=== PATIENT | male | born 1925 | race African-American/Black ===

== ENCOUNTER 2016-04-09 16:00 | Inpatient (IN) | payer OTHER, MEDICARE ==
[2016-04-09] VITALS (10 sets, daily range): BP systolic 109–172; BP diastolic 55–96; PULSE 80–120; RESP 12–16; TEMP 98.2–99.8; O2SAT 97–100
[~2016-04-09 16:00] MED LIST: ALBUAER3 INH; ARIC10TA PO; ASPI81TA11 PO; FERR1TAB36 PO; IPRASOL INH; LEVA750T PO; LIPI40TA PO; LORA1CHW CHEW; PRED20 PO; SYMB160A INH; TAMS5CAP PO; TIOT1AER INH; ZOLO25TA PO
[2016-04-09] MEDS ORDERED: MIDAZOLAM HCL 2 MG/2 ML VIAL IV PUSH ONE (16:15)
[2016-04-09] MEDS ORDERED: SODIUM CHLORIDE 0.9% FLUSH 5 ML FLUSH IVF PRN (16:15)
[2016-04-09] MEDS ORDERED: methylPREDNISolone SOD SUCC 125 MG/2 ML VIAL IVP ONE (16:15)
[2016-04-09] MEDS: RESP: ALBUTEROL 2.5 MG/IPRATROPIUM 0.5 MG NEB (SCH) INH ×2 (16:21→16:22)
[2016-04-09] MEDS ORDERED: SODIUM CHLOR 0.9% 1000 ML INJ 1,000 ML IV ONE ×3 (16:30→17:15)
--- NOTE | 2016-04-09 16:30 | PD ---
HPI Chief Complaint: Respiratory Distress Time Seen by Provider: 16:05 Travel History International Travel<30 days: No Contact w/Intl Traveler<30days: No Traveled to known affect area: No History of Present Illness HPI Patient is an 89-year-old male with history of COPD, presents to emergency room with respiratory failure. As per EMS, they were called to patient's home as patient was having increased agonal breathing. As per EMS, patient's home health nurse went to evaluate patient and patient was short of breath and wheezing. Patient was given an albuterol treatment with minimal relief of symptoms. When EMS arrived on scene, patient was unresponsive in respiratory distress. Patient was intubated for protection of airway. PFSH Past Medical History Hx Anticoagulant Therapy: Yes (81 MG ASPIRIN DAILY) Asthma: Yes Cancer: Yes (PROSTATE ) Cardiovascular Problems: Yes High Cholesterol: Yes Cerebrovascular Accident: No Dementia: Yes Diminished Hearing: Yes Endocrine: No Genitourinary: Yes Hypertension: Yes Immune Disorder: No Musculoskeletal: No Neurologic: Yes (Dementia) Reproductive: No Respiratory: Yes (COPD) Migraines: No Seizures: No Past Surgical History Abdominal Surgery: No Cardiac Surgery: No Ear Surgery: No Endocrine Surgery: No Eye Surgery: No Genitourinary Surgery: Yes Gynecologic Surgery: No Oral Surgery: No Prostatectomy: Yes (2001) Thoracic Surgery: No Social History Alcohol Use: No Tobacco Use: No (former) Substance Use: No Allergies-Medications (Allergen,Severity, Reaction): Coded Allergies: No Known Allergies (Unverified , 04/09/16) Reported Meds & Prescriptions Reported Meds & Active Scripts Active Symbicort Inh (Budesonide/Formoterol Fumarate) 160-4.5 Mcg/Act Aero 2 Puff INH Q12HR Levaquin (Levofloxacin) 750 Mg Tab 750 Mg PO Q48H Prednisone 20 Mg Tab 40 Mg PO DAILY Take 2 pills daily for 3 Days, then 1 pill daily for 3 days, then half a pill for 3 Days. Reported Stiolto Respimat Inh (Tiotropium-Olodaterol Inh) 2.5-2.5 Mcg/Act Aero 2 Puff INH DAILY Duoneb (Ipratropium-Albuterol Neb) 0.5-2.5 Mg/3 Ml Neb 1 Nebule INH Q4HR NEB Zoloft (Sertraline HCl) 25 Mg Tab 25 Mg PO DAILY Claritin (Loratadine) 5 Mg Chew 5 Mg CHEW DAILY Flomax (Tamsulosin HCl) 0.4 Mg Cap 0.4 Mg PO HS Aricept (Donepezil) 10 Mg Tab 10 Mg PO HS Lipitor (Atorvastatin Calcium) 40 Mg Tab 40 Mg PO EVERY OTHER DAY Iron (Ferrous Sulfate) 325 Mg Tab 325 Mg PO DAILY Take Aspirin EC (Aspirin) 81 Mg Tabdr 81 Mg PO DAILY Proair Hfa 8.5 GM Inh (Albuterol Sulfate) 90 Mcg/Act Aer 1 Puff INH Q4H PRN 108 mcg/actuation Review of Systems ROS Limitations: Intubated Physical Exam Narrative GENERAL: Moderate respiratory distress, patient sedated and intubated SKIN: Warm and dry. HEAD: Atraumatic. Normocephalic. ENT: No nasal bleeding or discharge. Mucous membranes pink and moist. ET tube in good position NECK: Trachea midline. No JVD. CARDIOVASCULAR: Tachycardic. No murmur appreciated. RESPIRATORY: Diffuse wheezing throughout upper and lower lobes of lungs, breath sounds heard bilaterally GASTROINTESTINAL: Abdomen soft, non-tender, nondistended. MUSCULOSKELETAL: No obvious deformities. No clubbing. No cyanosis. No edema. Data Data Last Documented VS Vital Signs Date Time Temp Pulse Resp B/P Pulse Ox O2 Delivery O2 Flow Rate FiO2 04/09/16 17:06 50 04/09/16 16:30 103 12 144/83 100 Ventilator 04/09/16 16:07 98.2 Orders Complete Blood Count With Diff (04/09/16 16:03) Comprehensive Metabolic Panel (04/09/16 16:03) B-Type Natriuretic Peptide (04/09/16 16:03) Act Partial Throm Time (Ptt) (04/09/16 16:03) Prothrombin Time / Inr (Pt) (04/09/16 16:03) Magnesium (Mg) (04/09/16 16:03) Ckmb (Isoenzyme) Profile (04/09/16 16:03) Troponin I (04/09/16 16:03) Arterial Blood Gas (Abg) (04/09/16 16:03) Urinalysis - C+S If Indicated (04/09/16 16:03) Influenzae A/B Antigen (04/09/16 16:03) Blood Culture (04/09/16 16:03) Iv Access Insert/Monitor (04/09/16 16:03) Electrocardiogram (04/09/16 16:03) Ecg Monitoring (04/09/16 16:03) Oximetry (04/09/16 16:03) Oxygen Administration (04/09/16 16:03) Chest, Single Ap (04/09/16 16:03) Urinary Catheter Insert/Apply (04/09/16 16:03) Sodium Chloride 0.9% Flush (Ns Flush) (04/09/16 16:15) Methylprednisolone So Succ Inj (Solumedr (04/09/16 16:15) Albuterol-Ipratropium Neb (Duoneb Neb) (04/09/16 16:15) Lactic Acid Sepsis Protocol (04/09/16 16:03) Propofol 1000 Mg/100 Ml Inj (Diprivan 10 (04/09/16 16:15) Midazolam Inj (Versed Inj) (04/09/16 16:15) Sodium Chlor 0.9% 1000 Ml Inj (Ns 1000 M (04/09/16 16:30) Sodium Chlor 0.9% 1000 Ml Inj (Ns 1000 M (04/09/16 17:15) Sodium Chlor 0.9% 1000 Ml Inj (Ns 1000 M (04/09/16 17:15) Piperacil-Tazo 3.375 Gm Premix (Zosyn 3. (04/09/16 17:15) Azithromycin Inj (Zithromax Inj) (04/09/16 17:15) Resp Ventilation- Volume (04/09/16 ) Labs Laboratory Tests Test 04/09/16 04/09/16 16:25 16:47 White Blood Count 19.8 TH/MM3 Red Blood Count 4.13 MIL/MM3 Hemoglobin 11.9 GM/DL Hematocrit 36.3 % Mean Corpuscular Volume 87.9 FL Mean Corpuscular Hemoglobin 28.9 PG Mean Corpuscular Hemoglobin 32.9 % Concent Red Cell Distribution Width 16.9 % Platelet Count 254 TH/MM3 Mean Platelet Volume 9.1 FL Neutrophils (%) (Auto) 24.0 % Lymphocytes (%) (Auto) 52.8 % Monocytes (%) (Auto) 8.0 % Eosinophils (%) (Auto) 14.5 % Basophils (%) (Auto) 0.7 % Neutrophils # (Auto) 4.7 TH/MM3 Lymphocytes # (Auto) 10.4 TH/MM3 Monocytes # (Auto) 1.6 TH/MM3 Eosinophils # (Auto) 2.9 TH/MM3 Basophils # (Auto) 0.1 TH/MM3 CBC Comment AUTO DIFF Sodium Level 140 MEQ/L Potassium Level 4.8 MEQ/L Chloride Level 103 MEQ/L Carbon Dioxide Level 26.0 MEQ/L Anion Gap 11 MEQ/L Blood Urea Nitrogen 23 MG/DL Creatinine 1.59 MG/DL Estimat Glomerular Filtration 50 ML/MIN Rate Random Glucose 190 MG/DL Lactic Acid Level 4.5 mmol/L Calcium Level 9.0 MG/DL Magnesium Level 2.6 MG/DL Total Bilirubin 0.3 MG/DL Aspartate Amino Transf 20 U/L (AST/SGOT) Alanine Aminotransferase 23 U/L (ALT/SGPT) Alkaline Phosphatase 84 U/L Total Creatine Kinase 99 U/L Troponin I LESS THAN 0.02 NG/ML B-Type Natriuretic Peptide 28 PG/ML Total Protein 7.2 GM/DL Albumin 3.6 GM/DL Blood Gas Puncture Site RT RADIAL Blood Gas Patient Temperature 98.6 Blood Gas HCO3 23 mmol/L Blood Gas Base Excess -2.3 mmol/L Blood Gas Oxygen Saturation 96 % Arterial Blood pH 7.31 Arterial Blood Partial 48 mmHg Pressure CO2 Arterial Blood Partial 440 mmHG Pressure O2 Arterial Blood Oxygen Content 15.3 Vol % Arterial Blood 1.7 % Carboxyhemoglobin Arterial Blood Methemoglobin 2.5 % Blood Gas Hemoglobin 10.5 G/DL Oxygen Delivery Device VENTILATOR Blood Gas Ventilator Setting 550/12/+5 Blood Gas Inspired Oxygen 100 % [facility] Medical Decision Making Medical Screen Exam Complete: Yes Emergency Medical Condition: Yes Interpretation(s) EKG at 1606: A flutter at 121 bpm, qt/qtc: 300/372 Vital Signs Date Time Temp Pulse Resp B/P Pulse Ox O2 Delivery O2 Flow Rate FiO2 04/09/16 16:07 120 16 137/75 100 Differential Diagnosis Acute hypoxemic respiratory failure secondary to COPD exacerbation, ACS, arrhythmia Narrative Course Patient is an 89-year-old male with history of COPD, presents to emergency room after he is intubated by EMS in the field for decompensation and acute COPD exacerbation. Arrival to the emergency room, patient was placed on cardiac/vascular sonographer. ETT in good position, patient with b/l bs. X-ray of the chest ordered for evaluation of ET tube placement as well as for evaluation of possible pneumonia. Patient is wheezing on exam, will give IV steroids as well as neb treatments. Labs as well as a blood cultures ordered for patient. Patient will require to ICU WBC 19.8 Hemoglobin 11.9 Hematocrit 36.3 Platelets 254 Sodium 140 Chloride 103 Potassium 4.8 BUN 23 Creatinine 1.59 Lactic acid 4.5 Patient septic, 30 cc/kg IV fluids ordered for patient, patient has been pancultured, IV Zosyn and azithromycin was ordered for patient. Case is reviewed with Dr. Eli who accepts patient to service. Patient's family at bedside, I did review all labs and all studies as well as the plan of care with them. Critical Care Narrative Aggregate critical care time was 30 minutes. Time to perform other separately billable procedures was not included in the critical care time. My time did not include minutes spent treating any other patients simultaneously or on activities that did not directly contribute to the patient's treatment. The services I provided to this patient were to treat and/or prevent clinically significant deterioration that could result in: , decompensation, deterioration I provided critical care services requiring my management, as noted below: Chart data review, documentation time, medication orders and management, vital sign assessments/reviewing monitor data, ordering and reviewing lab tests, ordering and interpreting/reviewing x-rays and diagnostic studies, care of the patient and discussion of the patient with the admitting physicians. Diagnosis Primary Impression: Acute hypoxemic respiratory failure Additional Impressions: COPD exacerbation Sepsis Renal insufficiency Admitting Information Admitting Physician Requests: Admit Shannan Schroeder DO Apr 09, 2016 16:30
[2016-04-09 16:42] LABS: AUTOMATED NEUTROPHIL # 4.7 TH/MM3 (1.8-7.7); BASOPHIL # 0.1 TH/MM3 (0-0.2); BASOPHIL % 0.7 % (0.0-2.0); EOSINOPHIL # 2.9 TH/MM3 (0-0.4); EOSINOPHIL % 14.5 % (0.0-4.0); HEMATOCRIT 36.3 % (39.0-51.0); LYMPH % 52.8 % (9.0-44.0); LYMPHOCYTE # 10.4 TH/MM3 (1.0-4.8); MEAN CELL VOLUME 87.9 FL (80.0-100.0); MEAN CORPUSCULAR HEMOGLOBIN 28.9 PG (27.0-34.0); MEAN CORPUSCULAR HGB CONC 32.9 % (32.0-36.0); PLATELET COUNT 254 TH/MM3 (150-450); RED BLOOD COUNT 4.13 MIL/MM3 (4.50-5.90); RED CELL DISTRIBUTION WIDTH 16.9 % (11.6-17.2); WHITE BLOOD COUNT 19.8 TH/MM3 (4.0-11.0)
[2016-04-09] MEDS: PROPOFOL 1000 MG/100 ML INJ 100 ML IV SCH ×3 (16:51→23:12)
[2016-04-09 16:58] LABS: HEMO FLAGS AUTO DIFF
[2016-04-09 16:59] LABS: BLOOD GAS BASE EXCESS -2.3 mmol/L (-2-2); BLOOD GAS CARBOXYHEMOGLOBIN 1.7 % (0-4); BLOOD GAS HCO3 23 mmol/L (22-26); BLOOD GAS METHEMOGLOBIN 2.5 % (0-2); BLOOD GAS O2 HGB SATURATION 96 % (90-100); BLOOD GAS OXYGEN CONTENT 15.3 Vol % (12.0-20.0); BLOOD GAS PCO2 48 mmHg (38-42); BLOOD GAS PO2 440 mmHG (61-120); BLOOD GAS TOTAL HGB 10.5 G/DL (12.0-16.0); TEMP CORR TO 98.6
[2016-04-09 17:00] LABS: CRITICAL VALUE NO; DRAW SITE RT RADIAL; FIO2 100 %; NUMBER OF ARTERIAL PUNCTURES 1; OXYGEN DEVICE VENTILATOR; STAT YES; ULNAR PULSE PRESENT; VENT SETTINGS 550/12/+5
[2016-04-09 17:07] LABS: ALKALINE PHOSPHATASE 84 U/L (45-117); TOTAL BILIRUBIN ADULT 0.3 MG/DL (0.2-1.0)
--- NOTE | 2016-04-09 17:07 | RADRPT ---
EXAM DATE/TIME: 04/09/2016 16:29 [facility] COMPARISON: CHEST SINGLE AP, February 17, 2016, 11:38. INDICATIONS : Shortness of breath. MEDICAL HISTORY : Hypertension. Chronic obstructive pulmonary disease. SURGICAL HISTORY : None. ENCOUNTER: Initial ACUITY: 1 day PAIN SCORE: Non-responsive. LOCATION: Bilateral chest FINDINGS: The cardiac silhouette is normal in transverse diameter. The lungs are free of acute parenchymal opac ity. No effusions are identified. There is prominence of the aortic knob is with calcification charac teristic of atherosclerotic vascular disease. Endotracheal tube is in good position above the edvin. A nasogastric tube is in place with its tip in the stomach. CONCLUSION: 1. No acute cardiopulmonary disease. 2. Satisfactory position of endotracheal tube as above. Dinesh House MD on April 09, 2016 at 17:05 Board Certified Radiologist. This report was verified electronically.
[2016-04-09 17:09] LABS: ALT (GPT) 23 U/L (12-78); ANION GAP 11 MEQ/L (5-15); AST (GOT) 20 U/L (15-37); BLOOD UREA NITROGEN 23 MG/DL (7-18); CHLORIDE 103 MEQ/L (98-107); GLOMERULAR FILTRATION RATE 50 ML/MIN (>89); MAGNESIUM 2.6 MG/DL (1.5-2.5); POTASSIUM 4.8 MEQ/L (3.5-5.1); SODIUM (NA) 140 MEQ/L (136-145)
[2016-04-09 17:10] LABS: CREATINE KINASE 99 U/L (39-308)
[2016-04-09] MEDS ORDERED: AZITHROMYCIN INJ 500 MG in SODIUM CHLOR 0.9% 250 ML INJ 250 ML IV ONE (17:15)
[2016-04-09] MEDS ORDERED: PIPERACIL-TAZO 3.375 GM PREMIX 50 ML IV ONE (17:15)
[2016-04-09] MEDS ORDERED: CHLORHEXIDINE GLUCONATE 2 % 1 PACK (2 CLOTHS) TOP PRN (17:45)
[2016-04-09] MEDS ORDERED: MISCELLANEOUS NURSING INFORMATION XX SCH (17:45)
[2016-04-09] MEDS ORDERED: ACETAMINOPHEN 325 MG TAB PO PRN (17:45)
[2016-04-09] MEDS ORDERED: ONDANSETRON HCL 4 MG/2 ML VIAL IV PRN (17:45)
[2016-04-09] MEDS ORDERED: MORPHINE SULFATE 4 MG/ML INJ IV PRN (17:45)
[2016-04-09] MEDS ORDERED: METOCLOPRAMIDE HCL 10 MG/2 ML VIAL IV PRN (17:45)
[2016-04-09] MEDS ORDERED: Vancomycin Consult Pharmacy 1 EA XX SCH (17:45)
[2016-04-09] MEDS ORDERED: LORazepam 2 MG/ML VIAL IV PRN (17:45)
[2016-04-09] MEDS ORDERED: SODIUM CHLORIDE 0.9% FLUSH 5 ML FLUSH IV FLUSH PRN (17:45)
[2016-04-09 17:50] LABS: BASOPHILS 2 % (0-2); EOSINOPHILS 15 % (0-4); NEUTROPHIL # MANUAL DIFF 2.6 TH/MM3 (1.8-7.7); POLYS (SEG NEUTROPHILS) 13 % (16-70); WBC DIFF SAMPLE 100
[2016-04-09 17:51] LABS: PLATELET ESTIMATE SMEAR NORMAL (NORMAL); PLATELET MORPHOLOGY NORMAL (NORMAL); SCAN/DIFF FINAL DIFF MANUAL
--- NOTE | 2016-04-09 17:56 | HHI.HP ---
HPI Service Critical Care Medicine Primary Care Physician Khoi Kennedy MD Admission Diagnosis VDRF, SEPSIS Diagnosis: Travel History International Travel<30 Days: No Contact w/Intl Traveler <30 Da: No Traveled to Known Affected Are: No History of Present Illness 89-year-old male with history of COPD, presents to emergency room with respiratory failure. As per documentation, EMS were called to patient's home as patient was having increased agonal breathing. As per EMS, patient's home health nurse went to evaluate patient and patient was short of breath and wheezing. Patient was given an albuterol treatment with minimal relief of symptoms. When EMS arrived on scene, patient was unresponsive in respiratory distress. Patient was intubated for protection of airway. Review of Systems ROS Unable to obtain patient is sedated and intubated Past Family Social History Allergies: Coded Allergies: No Known Allergies (Unverified , 04/09/16) Past Medical History 1. Hypertension. 2. Hyperlipidemia. 3. COPD 4. Prostate cancer Past Surgical History 1. Prostatectomy Reported Medications Reported Meds & Active Scripts Active Symbicort Inh (Budesonide/Formoterol Fumarate) 160-4.5 Mcg/Act Aero 2 Puff INH Q12HR Levaquin (Levofloxacin) 750 Mg Tab 750 Mg PO Q48H Prednisone 20 Mg Tab 40 Mg PO DAILY Take 2 pills daily for 3 Days, then 1 pill daily for 3 days, then half a pill for 3 Days. Reported Stiolto Respimat Inh (Tiotropium-Olodaterol Inh) 2.5-2.5 Mcg/Act Aero 2 Puff INH DAILY Duoneb (Ipratropium-Albuterol Neb) 0.5-2.5 Mg/3 Ml Neb 1 Nebule INH Q4HR NEB Zoloft (Sertraline HCl) 25 Mg Tab 25 Mg PO DAILY Claritin (Loratadine) 5 Mg Chew 5 Mg CHEW DAILY Flomax (Tamsulosin HCl) 0.4 Mg Cap 0.4 Mg PO HS Aricept (Donepezil) 10 Mg Tab 10 Mg PO HS Lipitor (Atorvastatin Calcium) 40 Mg Tab 40 Mg PO EVERY OTHER DAY Iron (Ferrous Sulfate) 325 Mg Tab 325 Mg PO DAILY Take Aspirin EC (Aspirin) 81 Mg Tabdr 81 Mg PO DAILY Proair Hfa 8.5 GM Inh (Albuterol Sulfate) 90 Mcg/Act Aer 1 Puff INH Q4H PRN 108 mcg/actuation Active Ordered Medications Current Medications Medications (Trade) Dose Ordered Sig/Heena Route PRN Reason Start Time Stop Time Status Last Admin Dose Admin IV Flush 2 ml 2 ml UNSCH PRN IVF FLUSH AFTER USING IV ACCESS 04/09/16 16:15 Propofol 100 ml @ 0 mls/hr TITRATE IV 04/09/16 16:15 04/09/16 16:51 Sodium Chloride (NS 1000 ml Inj) 1,000 ml @ 85 mls/hr [id number] IV 04/09/16 17:37 UNV IV Flush (NS Flush) 2 ml UNSCH PRN IV FLUSH FLUSH AFTER USING IV ACCESS 04/09/16 17:45 UNV IV Flush (NS Flush) 2 ml BID IV FLUSH 04/09/16 21:00 UNV Acetaminophen (Tylenol) 650 mg Q6H PRN PO PAIN 1-10 AND/OR FEVER >101F 04/09/16 17:45 UNV Morphine Sulfate (Morphine Inj) 2 mg Q2H PRN IV PAIN SCALE 6 TO 10 04/09/16 17:45 UNV Famotidine (Pepcid Inj) 20 mg Q12HR IV PUSH 04/09/16 21:00 UNV Lorazepam (Ativan Inj) 1 mg Q1H PRN IV Agitation/Sedation 04/09/16 17:45 UNV Artificial Tears (Tears Naturale Opth Soln) 1 drop TID EACH EYE 04/09/16 18:00 UNV Ondansetron HCl (Zofran Inj) 4 mg Q6H PRN IV NAUSEA OR VOMITING 04/09/16 17:45 UNV Metoclopramide HCl (Reglan Inj) 10 mg Q6H PRN IV NAUSEA OR VOMITING 04/09/16 17:45 UNV Docusate Sodium (Colace Liq) 100 mg Q12H G-TUBE 04/09/16 17:45 UNV Heparin Sodium (Porcine) (Heparin Inj) 5,000 units Q8H SQ 04/09/16 17:45 UNV Miscellaneous Information 1 [id number] XX 04/09/16 17:45 UNV Chlorhexidine Gluconate (Chlorhexidine 2% Cloth) 3 pack Taper DAILY@04 TOP 04/10/16 04:00 04/06/17 03:59 UNV Chlorhexidine Gluconate 3 pack 3 pack UNSCH PRN TOP HYGIENIC CARE 04/09/16 17:45 UNV Piperacillin Sod/ Tazobactam Sod 100 ml @ 200 mls/hr Q6H IV 04/09/16 17:45 UNV Azithromycin 500 mg/Sodium Chloride 250 ml @ 250 mls/hr Q24H IV 04/09/16 17:45 UNV Pharmacy Profile Note (Vancomycin Consult Pharmacy) 0 ml @ 0 mls/hr UNSCH XX 04/09/16 17:45 UNV Family History Noncontributory Social History Quit smoking 30 years ago no alcohol or illicit drug abuse Physical Exam Vital Signs Vital Signs Date Time Temp Pulse Resp B/P Pulse Ox O2 Delivery O2 Flow Rate FiO2 04/09/16 17:30 105 16 172/96 100 Ventilator 50 04/09/16 17:06 50 04/09/16 16:30 103 12 144/83 100 Ventilator 100 04/09/16 16:10 100 04/09/16 16:07 98.2 120 16 137/75 100 04/09/16 16:05 99 100 04/09/16 16:00 100 Ventilator 100 04/09/16 16:00 100 100 Physical Exam GENERAL: Well-nourished, well-developed patient. SKIN: Warm and dry. HEAD: Normocephalic. EYES: No scleral icterus. No injection or drainage. NECK: Supple, trachea midline. No JVD or lymphadenopathy. CARDIOVASCULAR: Regular rate and rhythm without murmurs, gallops, or rubs. RESPIRATORY: Breath sounds equal bilaterally. No accessory muscle use. Wheezing bilaterally GASTROINTESTINAL: Abdomen soft, non-tender, nondistended. MUSCULOSKELETAL: No cyanosis, or edema. BACK: Nontender without obvious deformity. No CVA tenderness. Laboratory Laboratory Tests Test 04/09/16 04/09/16 16:25 16:47 White Blood Count 19.8 Red Blood Count 4.13 Hemoglobin 11.9 Hematocrit 36.3 Mean Corpuscular Volume 87.9 Mean Corpuscular Hemoglobin 28.9 Mean Corpuscular Hemoglobin 32.9 Concent Red Cell Distribution Width 16.9 Platelet Count 254 Mean Platelet Volume 9.1 Neutrophils (%) (Auto) 24.0 Lymphocytes (%) (Auto) 52.8 Monocytes (%) (Auto) 8.0 Eosinophils (%) (Auto) 14.5 Basophils (%) (Auto) 0.7 Neutrophils # (Auto) 4.7 Lymphocytes # (Auto) 10.4 Monocytes # (Auto) 1.6 Eosinophils # (Auto) 2.9 Basophils # (Auto) 0.1 CBC Comment AUTO DIFF Differential Total Cells 100 Counted Neutrophils % (Manual) 13 Lymphocytes % 61 Monocytes % 9 Eosinophils % 15 Basophils % 2 Neutrophils # (Manual) 2.6 Differential Comment FINAL DIFF MANUAL Platelet Estimate NORMAL Platelet Morphology Comment NORMAL Red Cell Morphology Comment NORMAL Sodium Level 140 Potassium Level 4.8 Chloride Level 103 Carbon Dioxide Level 26.0 Anion Gap 11 Blood Urea Nitrogen 23 Creatinine 1.59 Estimat Glomerular Filtration 50 Rate Random Glucose 190 Lactic Acid Level 4.5 Calcium Level 9.0 Magnesium Level 2.6 Total Bilirubin 0.3 Aspartate Amino Transf 20 (AST/SGOT) Alanine Aminotransferase 23 (ALT/SGPT) Alkaline Phosphatase 84 Total Creatine Kinase 99 Troponin I LESS THAN 0.02 B-Type Natriuretic Peptide 28 Total Protein 7.2 Albumin 3.6 Blood Gas Puncture Site RT RADIAL Blood Gas Patient Temperature 98.6 Blood Gas HCO3 23 Blood Gas Base Excess -2.3 Blood Gas Oxygen Saturation 96 Arterial Blood pH 7.31 Arterial Blood Partial 48 Pressure CO2 Arterial Blood Partial 440 Pressure O2 Arterial Blood Oxygen Content 15.3 Arterial Blood 1.7 Carboxyhemoglobin Arterial Blood Methemoglobin 2.5 Blood Gas Hemoglobin 10.5 Oxygen Delivery Device VENTILATOR Blood Gas Ventilator Setting 550/12/+5 Blood Gas Inspired Oxygen 100 Date/Time Procedure Status Source Growth 04/09/16 16:30 Influenza Types A,B Antigen (CALOS) - Final Complete Nasal Aspirate NEGATIVE FOR FLU A AND B ANTIGEN.... 04/09/16 16:20 Aerobic Blood Culture Received Blood Peripheral Pending 04/09/16 16:20 Anaerobic Blood Culture Received Blood Peripheral Pending Result Diagram: 04/09/16 1625 04/09/16 1625 Assessment and Plan Problem List: (1) COPD exacerbation ICD Code: J44.1 Status: Acute (2) Leukocytosis ICD Code: D72.829 Status: Acute (3) Encephalopathy ICD Code: G93.40 Status: Acute (4) Acute hypoxemic respiratory failure ICD Code: J96.01 Status: Acute (5) Renal insufficiency ICD Code: N28.9 Status: Acute Assessment and Plan Acute on chronic respiratory failure - Due to COPD exacerbation - Broad-spectrum antibiotic - Follow-up culture - IV steroids - Albuterol/ipratropium scheduled and when necessary Acute kidney injury - Dehydration - Aggressive IV fluid resuscitation Lactic acidosis - Monitor trend - IV hydration Hypertension - Hold home meds - Normotensive DVT GI prophylaxis - Lovenox and Pepcid Critical Care: The total critical care time was 35minutes. Time to perform other separately billable procedures was not included in the critical care time. Greg Eli MD Apr 09, 2016 17:56
[2016-04-09] MEDS: ARTIFICIAL TEARS OPTH SOLN 15 ML BTL EACH EYE SCH (18:00)
[2016-04-09 18:19] LABS: BLOOD GAS BASE EXCESS -2.6 mmol/L (-2-2); BLOOD GAS CARBOXYHEMOGLOBIN 1.7 % (0-4); BLOOD GAS HCO3 23 mmol/L (22-26); BLOOD GAS METHEMOGLOBIN 2.7 % (0-2); BLOOD GAS O2 HGB SATURATION 95 % (90-100); BLOOD GAS OXYGEN CONTENT 16.1 Vol % (12.0-20.0); BLOOD GAS PCO2 46 mmHg (38-42); BLOOD GAS PO2 208 mmHG (61-120); BLOOD GAS TOTAL HGB 11.8 G/DL (12.0-16.0); TEMP CORR TO 98.6
[2016-04-09 18:20] LABS: CRITICAL VALUE NO; DRAW SITE RT RADIAL; FIO2 50 %; NUMBER OF ARTERIAL PUNCTURES 1; OXYGEN DEVICE VENTILATOR; STAT YES; ULNAR PULSE PRESENT; VENT SETTINGS 550/16/+5
[2016-04-09 18:36] LABS: LACTIC ACID GHOST NOT REPORTABLE
[2016-04-09 18:44] LABS: APTT (PATIENT) 23.6 SEC (24.3-30.1); PROTHROMBIN TIME - PATIENT 10.9 SEC (9.8-11.6)
[2016-04-09] MEDS ORDERED: VANCOMYCIN INJ 2,200 MG in SODIUM CHLORID 0.9% 500 ML INJ 500 ML IV STA (19:19)
[2016-04-09] MEDS: SODIUM CHLOR 0.9% 1000 ML INJ 1,000 ML IV SCH (20:07)
[2016-04-09] MEDS: methylPREDNISolone SOD SUCC 40 MG/1 ML VIAL IV PUSH SCH (23:10)
[2016-04-09] MEDS: PIPERACIL-TAZO 4.5 GM PREMIX 100 ML IV SCH (23:10)
[2016-04-09] MEDS: HEPARIN SODIUM - SQ 10,000 UNITS/ML VIAL SQ SCH (23:10)
[2016-04-09] MEDS: FAMOTIDINE 20 MG/2 ML VIAL IV PUSH SCH (23:11)
[2016-04-09] MEDS: DOCUSATE SODIUM 100 MG/10 ML UDC G-TUBE SCH (23:11)
[2016-04-09] MEDS: CHLORHEXIDINE GLUCONATE 2 % 1 PACK (2 CLOTHS) TOP SCH (23:11)
[2016-04-09] MEDS: SODIUM CHLORIDE 0.9% FLUSH 5 ML FLUSH IV FLUSH SCH (23:11)
[2016-04-10] VITALS (19 sets, daily range): BP systolic 112–171; BP diastolic 56–78; PULSE 51–83; RESP 16–20; TEMP 97–98.8; O2SAT 97–100
[2016-04-10] MEDS: PROPOFOL 1000 MG/100 ML INJ 100 ML IV SCH ×5 (03:13→20:57)
[2016-04-10 04:30] LABS: AUTOMATED NEUTROPHIL # 12.8 TH/MM3 (1.8-7.7); BASOPHIL % 0.1 % (0.0-2.0); EOSINOPHIL % 0.1 % (0.0-4.0); HEMATOCRIT 35.5 % (39.0-51.0); HEMO FLAGS DIFF FINAL; LYMPH % 12.1 % (9.0-44.0); LYMPHOCYTE # 1.8 TH/MM3 (1.0-4.8); MEAN CELL VOLUME 88.4 FL (80.0-100.0); MEAN CORPUSCULAR HEMOGLOBIN 28.8 PG (27.0-34.0); MEAN CORPUSCULAR HGB CONC 32.6 % (32.0-36.0); MONO % 1.9 % (0.0-8.0); NEUT % 85.8 % (16.0-70.0); PLATELET COUNT 196 TH/MM3 (150-450); RED BLOOD COUNT 4.02 MIL/MM3 (4.50-5.90); RED CELL DISTRIBUTION WIDTH 17.1 % (11.6-17.2); WHITE BLOOD COUNT 14.9 TH/MM3 (4.0-11.0)
[2016-04-10 04:46] LABS: ALT (GPT) 20 U/L (12-78); ANION GAP 10 MEQ/L (5-15); AST (GOT) 18 U/L (15-37); BICARBONATE 20.9 MEQ/L (21.0-32.0); BLOOD UREA NITROGEN 20 MG/DL (7-18); CHLORIDE 109 MEQ/L (98-107); GLOMERULAR FILTRATION RATE 66 ML/MIN (>89); POTASSIUM 4.7 MEQ/L (3.5-5.1); SODIUM (NA) 140 MEQ/L (136-145)
[2016-04-10 04:51] LABS: ALKALINE PHOSPHATASE 74 U/L (45-117); TOTAL BILIRUBIN ADULT 0.4 MG/DL (0.2-1.0)
[2016-04-10] MEDS: SODIUM CHLOR 0.9% 1000 ML INJ 1,000 ML IV SCH ×2 (05:59→10:04)
[2016-04-10] MEDS: methylPREDNISolone SOD SUCC 40 MG/1 ML VIAL IV PUSH SCH ×4 (05:59→23:58)
[2016-04-10] MEDS: PIPERACIL-TAZO 4.5 GM PREMIX 100 ML IV SCH ×4 (06:00→23:58)
[2016-04-10] MEDS: HEPARIN SODIUM - SQ 10,000 UNITS/ML VIAL SQ SCH ×3 (06:00→20:56)
[2016-04-10 06:42] LABS: BACTERIA, URINE MOD /hpf; BLOOD, URINE NEG (NEG); GLUCOSE,URINE NEG (NEG); KETONE, URINE NEG (NEG); MUCUS URINE FEW /lpf (OCC); NITRITE,URINE NEG (NEG); PH, URINE 5.5 (5.0-8.5); SQUAMOUS EPITHELIAL CELL URINE <1 /hpf (0-5); URINE COLOR YELLOW (YELLW/STRAW)
[2016-04-10 06:46] LABS: CULTURE IF INDICATED CULTURE INDICATED
[2016-04-10] MEDS: RESP: ALBUTEROL 2.5 MG/IPRATROPIUM 0.5 MG NEB (PRN) INH ×2 (08:06→14:50)
[2016-04-10] MEDS: ARTIFICIAL TEARS OPTH SOLN 15 ML BTL EACH EYE SCH ×3 (09:00→18:12)
[2016-04-10] MEDS: DOCUSATE SODIUM 100 MG/10 ML UDC G-TUBE SCH ×2 (10:04→20:56)
[2016-04-10] MEDS: SODIUM CHLORIDE 0.9% FLUSH 5 ML FLUSH IV FLUSH SCH ×2 (10:05→20:56)
--- NOTE | 2016-04-10 10:46 | HHI.CCPN ---
Subjective Remarks/Hospital Course 89-year-old male with history of COPD, presents to emergency room with respiratory failure. As per documentation, EMS were called to patient's home as patient was having increased agonal breathing. As per EMS, patient's home health nurse went to evaluate patient and patient was short of breath and wheezing. Patient was given an albuterol treatment with minimal relief of symptoms. When EMS arrived on scene, patient was unresponsive in respiratory distress. Patient was intubated for protection of airway. Objective Vital Signs Date Time Temp Pulse Resp B/P Pulse Ox O2 Delivery O2 Flow Rate FiO2 04/10/16 10:00 40 04/10/16 09:14 100 04/10/16 06:00 55 04/10/16 04:00 98.4 19 171/78 04/09/16 20:27 Ventilator Result Diagram: 04/10/16 0358 04/10/16 0358 Other Results Microbiology Date/Time Procedure Status Source Growth 04/09/16 16:30 Influenza Types A,B Antigen (CALOS) - Final Complete Nasal Aspirate NEGATIVE FOR FLU A AND B ANTIGEN.... Laboratory Tests Test 04/09/16 04/09/16 16:47 18:08 Blood Gas Puncture Site RT RADIAL RT RADIAL Blood Gas Patient Temperature 98.6 98.6 Blood Gas HCO3 23 mmol/L 23 mmol/L (22-26) (22-26) Blood Gas Base Excess -2.3 mmol/L -2.6 mmol/L (-2-2) (-2-2) Blood Gas Oxygen Saturation 96 % (90-100) 95 % (90-100) Arterial Blood pH 7.31 7.31 (7.380-7.420) (7.380-7.420) Arterial Blood Partial 48 mmHg (38-42) 46 mmHg (38-42) Pressure CO2 Arterial Blood Partial 440 mmHG 208 mmHG Pressure O2 (61-120) (61-120) Arterial Blood Oxygen Content 15.3 Vol % 16.1 Vol % (12.0-20.0) (12.0-20.0) Arterial Blood 1.7 % (0-4) 1.7 % (0-4) Carboxyhemoglobin Arterial Blood Methemoglobin 2.5 % (0-2) 2.7 % (0-2) Blood Gas Hemoglobin 10.5 G/DL 11.8 G/DL (12.0-16.0) (12.0-16.0) Oxygen Delivery Device VENTILATOR VENTILATOR Blood Gas Ventilator Setting 550/12/+5 550/16/+5 Blood Gas Inspired Oxygen 100 % 50 % Objective Remarks GENERAL: Well-nourished, well-developed patient. SKIN: Warm and dry. HEAD: Normocephalic. EYES: No scleral icterus. No injection or drainage. NECK: Supple, trachea midline. No JVD or lymphadenopathy. CARDIOVASCULAR: Regular rate and rhythm without murmurs, gallops, or rubs. RESPIRATORY: Breath sounds equal bilaterally. No accessory muscle use. Wheezing bilaterally GASTROINTESTINAL: Abdomen soft, non-tender, nondistended. MUSCULOSKELETAL: No cyanosis, or edema. BACK: Nontender without obvious deformity. No CVA tenderness. A/P Problem List: (1) COPD exacerbation ICD Code: J44.1 Status: Acute (2) Leukocytosis ICD Code: D72.829 Status: Acute (3) Encephalopathy ICD Code: G93.40 Status: Acute (4) Acute hypoxemic respiratory failure ICD Code: J96.01 Status: Acute (5) Renal insufficiency ICD Code: N28.9 Status: Acute Assessment and Plan Acute on chronic respiratory failure - Due to COPD exacerbation - Broad-spectrum antibiotic - Follow-up culture - IV steroids - Albuterol/ipratropium scheduled and when necessary - SBT and attempt to wean today Acute kidney injury - Dehydration - Aggressive IV fluid resuscitation - Monitor I's and O's Lactic acidosis - Monitor trend - IV hydration - Improving Hypertension - Hold home meds - Normotensive DVT GI prophylaxis - Lovenox and Pepcid Critical Care: The total critical care time was 35minutes. Time to perform other separately billable procedures was not included in the critical care time. Greg Eli MD Apr 10, 2016 10:45
--- NOTE | 2016-04-10 16:12 | EC ---
Study Study Date:04/10/2016 STUDY CONCLUSIONS SUMMARY - Left ventricle: The cavity size was normal. Wall thickness was normal. Systolic function was vigorous. The estimated ejection fraction was in the range of 65% to 70%. Wall motion was normal; there were no regional wall motion abnormalities. Doppler parameters are consistent with abnormal left ventricular relaxation (grade 1 diastolic dysfunction). - Mitral valve: Mild regurgitation. - Tricuspid valve: Mild regurgitation. If LV function is below 40, please consider prescribing an ACEI or ARB or document rationale for non-use. PROCEDURE DATA STUDY STATUS: Elective. Procedure: Transthoracic echocardiography. Image quality was good. Scanning was performed from the parasternal, apical, and subcostal acoustic windows. Study completion: The patient tolerated the procedure well. Transthoracic echocardiography. M-mode, complete 2D, complete spectral Doppler, and color Doppler. Patient status: Inpatient. CARDIAC ANATOMY LEFT VENTRICLE: The cavity size was normal. Wall thickness was normal. Systolic function was vigorous. The estimated ejection fraction was in the range of 65% to 70%. Wall motion was normal; there were no regional wall motion abnormalities. Doppler parameters are consistent with abnormal left ventricular relaxation (grade 1 diastolic dysfunction). AORTIC VALVE: Trileaflet; normal thickness, mildly calcified leaflets. Doppler: Transvalvular velocity was within the normal range. There was no stenosis. No regurgitation. AORTA: Aortic root: The aortic root was normal in size. MITRAL VALVE: Structurally normal valve. Doppler: Transvalvular velocity was within the normal range. There was no evidence for stenosis. Mild regurgitation. LEFT ATRIUM: The atrium was normal in size. RIGHT VENTRICLE: The cavity size was normal. Wall thickness was normal. PULMONIC VALVE: Doppler: Transvalvular velocity was within the normal range. There was no evidence for stenosis. No regurgitation. TRICUSPID VALVE: Structurally normal valve. Doppler: Transvalvular velocity was within the normal range. Mild regurgitation. PULMONARY ARTERY: The main pulmonary artery was normal-sized. Systolic pressure was within the normal range. RIGHT ATRIUM: The atrium was normal in size. PERICARDIUM: There was no pericardial effusion. SYSTEMIC VEINS: Inferior vena cava: The vessel was normal in size. BASIC MEASUREMENTS ADULT Normal Left ventricle LV internal dimension, ED, chordal level, *36.8 mm 43-52 PLAX LV internal dimension, ES, chordal level, 25.3 mm 23-38 PLAX Fractional shortening, chordal level, PLAX 31 % >29 LV posterior wall thickness, ED 8.56 mm IVS/LVPW ratio, ED 1.15 <1.3 Ventricular septum Septal thickness, ED 9.83 mm Aortic valve Leaflet separation 18 mm 15-26 Right ventricle RV internal dimension, ED, PLAX 20.7 mm 19-38 BASIC MEASUREMENTS ADULT Normal Aortic valve Leaflet separation 18 mm 15-26 Aorta Root diameter, ED 33 mm 20-37 Left atrium Anterior-posterior dimension, ES 28 mm 19-40 LA/aortic root ratio 0.85 DOPPLER MEASUREMENTS ADULT Normal Main pulmonary artery Pressure, S 29 mm Hg =30 Mitral valve Peak E-wave velocity 44.4 cm/s Peak A-wave velocity 80.5 cm/s Peak E/A ratio 0.6 Tricuspid valve Regurgitant peak velocity 220 cm/s Peak RV-RA gradient, S 19 mm Hg Maximal regurgitant velocity 220 cm/s Systemic veins Estimated CVP 10 mm Hg Right ventricle RV pressure, S 29 mm Hg <30 LEGEND: Mean values are shown as u=mean value. Asterisk (*) lagos values outside specified normal range. Prepared and signed by Sina Nguyễn [id number]
--- NOTE | 2016-04-10 16:36 | EKG ---
Date Performed: 04/09/2016 Time Performed: 16:06:55 PTAGE: 89 years EKG: LIKELY SINUS TACHYCARDIA BUT WOULD REPEAT EKG AT SLOWER HEART RATE TO EXCLUDE AN ATRIAL FLU TTER/ATRIAL TACHYCARDIA LEFT ANTERIOR FASCICULAR BLOCK ABNORMAL ECG NO PREVIOUS TRACING DOCTOR: Sina Nguyễn Interpretating Date/Time 04/10/2016 16:34:40
[2016-04-10] MEDS: AZITHROMYCIN INJ 500 MG in SODIUM CHLOR 0.9% 250 ML INJ 250 ML IV SCH (18:12)
[2016-04-10] MEDS: FAMOTIDINE 20 MG/2 ML VIAL IV PUSH SCH (20:56)
[2016-04-10] MEDS: VANCOMYCIN INJ 1,250 MG in SODIUM CHLOR 0.9% 250 ML INJ 250 ML IV SCH (20:57)
[2016-04-11] VITALS (17 sets, daily range): BP systolic 108–165; BP diastolic 57–70; PULSE 56–86; RESP 16–25; TEMP 97.5–99.1; O2SAT 97–100
[2016-04-11] MEDS: PROPOFOL 1000 MG/100 ML INJ 100 ML IV SCH ×2 (02:00→08:33)
[2016-04-11] MEDS: SODIUM CHLOR 0.9% 1000 ML INJ 1,000 ML IV SCH ×2 (03:20→18:04)
[2016-04-11] MEDS: CHLORHEXIDINE GLUCONATE 2 % 1 PACK (2 CLOTHS) TOP SCH (04:00)
[2016-04-11] MEDS: HEPARIN SODIUM - SQ 10,000 UNITS/ML VIAL SQ SCH ×3 (05:36→20:47)
[2016-04-11] MEDS: methylPREDNISolone SOD SUCC 40 MG/1 ML VIAL IV PUSH SCH ×3 (05:36→17:52)
[2016-04-11] MEDS: PIPERACIL-TAZO 4.5 GM PREMIX 100 ML IV SCH ×2 (05:36→12:19)
[2016-04-11 06:11] LABS: ALT (GPT) 20 U/L (12-78); ANION GAP 12 MEQ/L (5-15); AST (GOT) 18 U/L (15-37); BICARBONATE 19.6 MEQ/L (21.0-32.0); BLOOD UREA NITROGEN 20 MG/DL (7-18); CHLORIDE 114 MEQ/L (98-107); GLOMERULAR FILTRATION RATE 67 ML/MIN (>89); MAGNESIUM 2.8 MG/DL (1.5-2.5); POTASSIUM 4.6 MEQ/L (3.5-5.1); SODIUM (NA) 146 MEQ/L (136-145)
[2016-04-11 06:13] LABS: AUTOMATED NEUTROPHIL # 15.5 TH/MM3 (1.8-7.7); BASOPHIL # 0.1 TH/MM3 (0-0.2); BASOPHIL % 0.4 % (0.0-2.0); HEMATOCRIT 37.3 % (39.0-51.0); HEMO FLAGS DIFF FINAL; LYMPH % 10.3 % (9.0-44.0); LYMPHOCYTE # 1.8 TH/MM3 (1.0-4.8); MEAN CELL VOLUME 86.8 FL (80.0-100.0); MEAN CORPUSCULAR HEMOGLOBIN 29.1 PG (27.0-34.0); MEAN CORPUSCULAR HGB CONC 33.5 % (32.0-36.0); MONO % 2.7 % (0.0-8.0); NEUT % 86.6 % (16.0-70.0); PLATELET COUNT 192 TH/MM3 (150-450); RED BLOOD COUNT 4.29 MIL/MM3 (4.50-5.90); RED CELL DISTRIBUTION WIDTH 17.2 % (11.6-17.2); WHITE BLOOD COUNT 17.9 TH/MM3 (4.0-11.0)
[2016-04-11 06:14] LABS: ALKALINE PHOSPHATASE 68 U/L (45-117); TOTAL BILIRUBIN ADULT 0.3 MG/DL (0.2-1.0)
[2016-04-11] MEDS: DOCUSATE SODIUM 100 MG/10 ML UDC G-TUBE SCH ×2 (08:32→20:47)
[2016-04-11] MEDS: ARTIFICIAL TEARS OPTH SOLN 15 ML BTL EACH EYE SCH ×3 (08:32→17:55)
[2016-04-11] MEDS: SODIUM CHLORIDE 0.9% FLUSH 5 ML FLUSH IV FLUSH SCH ×2 (08:33→20:47)
--- NOTE | 2016-04-11 09:33 | HHI.CCPN ---
Subjective Remarks/Hospital Course 89-year-old male with history of COPD, presents to emergency room with respiratory failure. As per documentation, EMS were called to patient's home as patient was having increased agonal breathing. As per EMS, patient's home health nurse went to evaluate patient and patient was short of breath and wheezing. Patient was given an albuterol treatment with minimal relief of symptoms. When EMS arrived on scene, patient was unresponsive in respiratory distress. Patient was intubated for protection of airway. Objective Vital Signs Date Time Temp Pulse Resp B/P Pulse Ox O2 Delivery O2 Flow Rate FiO2 04/11/16 08:25 40 04/11/16 08:21 98 04/11/16 06:00 65 04/11/16 04:00 97.5 17 154/68 04/09/16 20:27 Ventilator Intake and Output 04/10/16 04/10/16 04/11/16 08:00 16:00 00:00 Intake Total 1675 ml 1083 ml 1577 ml Output Total 1900 ml 550 ml 925 ml Balance -225 ml 533 ml 652 ml Result Diagram: 04/11/16 0511 04/11/16 0511 Other Results Microbiology Date/Time Procedure Status Source Growth 04/09/16 16:30 Influenza Types A,B Antigen (CALOS) - Final Complete Nasal Aspirate NEGATIVE FOR FLU A AND B ANTIGEN.... 04/10/16 05:30 Legionella Antigen - Final Complete Urine Catheterized Urine PRESUMPTIVE NEGATIVE FOR LEGIONELLA P... 04/10/16 05:30 Streptococcus pneumoniae Antigen (M - Final Complete Urine Catheterized Urine PRESUMPTIVE NEGATIVE FOR STREPTOCOCCU... Objective Remarks GENERAL: Well-nourished, well-developed patient. SKIN: Warm and dry. HEAD: Normocephalic. EYES: No scleral icterus. No injection or drainage. NECK: Supple, trachea midline. No JVD or lymphadenopathy. CARDIOVASCULAR: Regular rate and rhythm without murmurs, gallops, or rubs. RESPIRATORY: Breath sounds equal bilaterally. No accessory muscle use. Wheezing bilaterally GASTROINTESTINAL: Abdomen soft, non-tender, nondistended. MUSCULOSKELETAL: No cyanosis, or edema. BACK: Nontender without obvious deformity. No CVA tenderness. A/P Problem List: (1) COPD exacerbation ICD Code: J44.1 Status: Acute (2) Leukocytosis ICD Code: D72.829 Status: Acute (3) Encephalopathy ICD Code: G93.40 Status: Acute (4) Acute hypoxemic respiratory failure ICD Code: J96.01 Status: Acute (5) Renal insufficiency ICD Code: N28.9 Status: Acute Assessment and Plan Acute on chronic respiratory failure - Due to COPD exacerbation - Broad-spectrum antibiotic - Follow-up culture - IV steroids - Albuterol/ipratropium scheduled and when necessary - SBT and attempt to wean today Acute kidney injury - Dehydration - Aggressive IV fluid resuscitation - Monitor I's and O's Lactic acidosis - Resolved - IV hydration Hypertension - Hold home meds - Normotensive DVT GI prophylaxis - Lovenox and Pepcid Level III Greg Eli MD Apr 11, 2016 09:33
[2016-04-11 10:36] LABS: BLOOD GAS BASE EXCESS -4.9 mmol/L (-2-2); BLOOD GAS CARBOXYHEMOGLOBIN 1.2 % (0-4); BLOOD GAS HCO3 19 mmol/L (22-26); BLOOD GAS METHEMOGLOBIN 1.4 % (0-2); BLOOD GAS O2 HGB SATURATION 94 % (90-100); BLOOD GAS OXYGEN CONTENT 15.6 Vol % (12.0-20.0); BLOOD GAS PCO2 34 mmHg (38-42); BLOOD GAS PO2 85 mmHg (61-120); BLOOD GAS TOTAL HGB 11.7 G/DL (12.0-16.0); CRITICAL VALUE NO; OXYGEN DEVICE VENTILATOR; TEMP CORR TO 98.6; VENT SETTINGS PS5 EPAP5
[2016-04-11 10:37] LABS: DRAW SITE LT BRACHIAL; FIO2 40 %; NUMBER OF ARTERIAL PUNCTURES 1; STAT NO; ULNAR PULSE Y
[2016-04-11] MEDS: RESP: ALBUTEROL 2.5 MG/IPRATROPIUM 0.5 MG NEB (PRN) INH ×2 (11:05→19:56)
[2016-04-11] MEDS: AZITHROMYCIN INJ 500 MG in SODIUM CHLOR 0.9% 250 ML INJ 250 ML IV SCH (17:54)
[2016-04-11] MEDS: PIPERACIL-TAZO 3.375 GM PREMIX 50 ML IV SCH (17:55)
[2016-04-11] MEDS: FAMOTIDINE 20 MG/2 ML VIAL IV PUSH SCH (20:47)
[2016-04-11] MEDS: VANCOMYCIN INJ 1,250 MG in SODIUM CHLOR 0.9% 250 ML INJ 250 ML IV SCH (20:47)
[2016-04-11] MEDS: LINEZOLID 600 MG TAB PO SCH (20:47)
[2016-04-12] VITALS (13 sets, daily range): BP systolic 136–181; BP diastolic 57–76; PULSE 63–100; RESP 15–26; TEMP 97.4–98.6; O2SAT 92–100
[2016-04-12] MEDS: methylPREDNISolone SOD SUCC 40 MG/1 ML VIAL IV PUSH SCH ×5 (00:52→23:19)
[2016-04-12] MEDS: PIPERACIL-TAZO 3.375 GM PREMIX 50 ML IV SCH ×5 (00:52→23:19)
[2016-04-12] MEDS: RESP: ALBUTEROL 2.5 MG/IPRATROPIUM 0.5 MG NEB (PRN) INH ×2 (01:01→20:31)
[2016-04-12] MEDS: CHLORHEXIDINE GLUCONATE 2 % 1 PACK (2 CLOTHS) TOP SCH (03:21)
[2016-04-12] MEDS: RESP: ALBUTEROL 2.5 MG/IPRATROPIUM 0.5 MG NEB (SCH) NEB ×6 (03:50→23:42)
[2016-04-12 04:42] LABS: AUTOMATED NEUTROPHIL # 14.5 TH/MM3 (1.8-7.7); BASOPHIL % 0.1 % (0.0-2.0); HEMATOCRIT 33.2 % (39.0-51.0); HEMO FLAGS DIFF FINAL; LYMPH % 8.2 % (9.0-44.0); LYMPHOCYTE # 1.3 TH/MM3 (1.0-4.8); MEAN CELL VOLUME 87.6 FL (80.0-100.0); MEAN CORPUSCULAR HEMOGLOBIN 28.7 PG (27.0-34.0); MEAN CORPUSCULAR HGB CONC 32.8 % (32.0-36.0); MONO % 3.1 % (0.0-8.0); NEUT % 88.6 % (16.0-70.0); PLATELET COUNT 229 TH/MM3 (150-450); RED BLOOD COUNT 3.79 MIL/MM3 (4.50-5.90); RED CELL DISTRIBUTION WIDTH 17.2 % (11.6-17.2); WHITE BLOOD COUNT 16.4 TH/MM3 (4.0-11.0)
[2016-04-12] MEDS: SODIUM CHLOR 0.9% 1000 ML INJ 1,000 ML IV SCH ×2 (05:12→17:38)
[2016-04-12] MEDS: HEPARIN SODIUM - SQ 10,000 UNITS/ML VIAL SQ SCH ×3 (05:12→20:20)
[2016-04-12 05:14] LABS: ANION GAP 9 MEQ/L (5-15); AST (GOT) 20 U/L (15-37); BICARBONATE 21.6 MEQ/L (21.0-32.0); BLOOD UREA NITROGEN 28 MG/DL (7-18); CHLORIDE 118 MEQ/L (98-107); GLOMERULAR FILTRATION RATE 68 ML/MIN (>89); MAGNESIUM 2.8 MG/DL (1.5-2.5); SODIUM (NA) 149 MEQ/L (136-145)
[2016-04-12 05:30] LABS: ALKALINE PHOSPHATASE 56 U/L (45-117); ALT (GPT) 21 U/L (12-78); TOTAL BILIRUBIN ADULT 0.4 MG/DL (0.2-1.0)
[2016-04-12] MEDS ORDERED: ICU - POTASSIUM PHOSPHATE 30 MMOL/NS 250 ML IV PRN ×2 (08:45)
[2016-04-12] MEDS ORDERED: ICU - POTASSIUM CHLORIDE 10% LIQUID 40 MEQ/30 ML CUP PO PRN (08:45)
[2016-04-12] MEDS ORDERED: ICU - MAGNESIUM SULFATE 4 GM/NS 100 ML IV PRN ×2 (08:45)
[2016-04-12] MEDS ORDERED: ICU - POTASSIUM CHLORIDE/AQUEOUS SOLN 20 MEQ/100 ML IVPB IV PRN (08:45)
[2016-04-12] MEDS ORDERED: ICU - SODIUM PHOSPHATE 30 MMOL/NS 250 ML IV PRN ×2 (08:45)
[2016-04-12] MEDS ORDERED: ICU - MAGNESIUM OXIDE 400 MG TAB PO PRN (08:45)
[2016-04-12] MEDS ORDERED: ICU - CALL ORDERING PHYSICIAN XX PRN (08:45)
[2016-04-12] MEDS ORDERED: ICU - POTASSIUM CHLORIDE/AQUEOUS SOLN 40 MEQ/100 ML IVPB IV PRN (08:45)
[2016-04-12] MEDS ORDERED: ICU - D/C ICU ELECTROLYTE ORDERS XX PRN (08:45)
[2016-04-12] MEDS ORDERED: ICU - POTASSIUM PHOSPHATE MONOBASIC 500 MG TAB PO/TUBE PRN (08:45)
[2016-04-12] MEDS ORDERED: ICU - MAGNESIUM SULFATE 2 GM/NS 100 ML IV PRN ×2 (08:45)
[2016-04-12] MEDS: ARTIFICIAL TEARS OPTH SOLN 15 ML BTL EACH EYE SCH ×3 (09:00→17:06)
[2016-04-12] MEDS: DOCUSATE SODIUM 100 MG/10 ML UDC G-TUBE SCH ×2 (09:00→20:06)
[2016-04-12] MEDS: SODIUM CHLORIDE 0.9% FLUSH 5 ML FLUSH IV FLUSH SCH ×2 (09:56→20:20)
[2016-04-12] MEDS: LINEZOLID 600 MG TAB PO SCH (09:56)
--- NOTE | 2016-04-12 16:01 | HHI.PR ---
Subjective Remarks Follow-up for UTI Patient has dementia, poor historian. Otherwise no complaints, says shortness of breath is better. Afebrile. Discussed with RN. Objective Vitals Vital Signs Date Time Temp Pulse Resp B/P Pulse Ox O2 Delivery O2 Flow Rate FiO2 04/12/16 14:00 69 04/12/16 12:00 63 04/12/16 12:00 98.3 63 21 136/57 99 04/12/16 10:00 78 04/12/16 09:03 99 Nasal Cannula 4.00 04/12/16 08:00 72 04/12/16 08:00 97.4 70 26 139/67 100 04/12/16 07:00 100 Nasal Cannula 4.00 04/12/16 06:00 80 04/12/16 04:00 67 04/12/16 04:00 98.1 67 17 143/57 100 04/12/16 02:00 68 04/12/16 00:00 98.6 63 15 158/66 98 04/12/16 00:00 63 04/11/16 22:00 63 04/11/16 20:00 98.9 71 24 140/63 100 04/11/16 20:00 71 04/11/16 19:31 97 Nasal Cannula 4.00 04/11/16 19:00 100 Nasal Cannula 4.00 04/11/16 18:00 82 04/11/16 16:00 78 04/11/16 16:00 98.6 78 23 165/70 98 I/O 04/11/16 04/11/16 04/11/16 04/12/16 04/12/16 04/12/16 07:00 15:00 23:00 07:00 15:00 23:00 Intake Total 1243 ml 966 ml 1187 ml 585 ml 1131 ml Output Total 475 ml 725 ml 750 ml 452 ml 500 ml Balance 768 ml 241 ml 437 ml 133 ml 631 ml Intake Oral 500 ml IV Total 874 ml 786 ml 1187 ml 585 ml 631 ml Tube Feeding 369 ml Tube Irrigant 180 ml Output Urine Total 475 ml 725 ml 750 ml 452 ml 500 ml # Bowel Movements 0 1 2 1 1 Result Diagram: 04/12/16 0358 04/12/16 0358 Objective Remarks GENERAL: Well-nourished, well-developed patient. EYES: No scleral icterus. No injection or drainage. NECK: Supple, trachea midline. No JVD or lymphadenopathy. CARDIOVASCULAR: Regular rate and rhythm without murmurs, gallops, or rubs. RESPIRATORY: Patient wheezing. GASTROINTESTINAL: Abdomen soft, non-tender, nondistended. MUSCULOSKELETAL: No cyanosis, or edema. BACK: Nontender without obvious deformity. No CVA tenderness. Alert, awake, not oriented, moves extremities. A/P Assessment and Plan Acute on chronic respiratory failure secondary to COPD exacerbation-continue DuoNeb as her naproxen as needed, continue steroids. Extubated 04/11/16. Chest x-ray unremarkable. Continue broad-spectrum with zosyn, azithromycin and vancomycin. WBC improving. UTI with MRSA-sensitive to vancomycin, continue vancomycin for now, stop linezolid, consult infectious disease, check echocardiogram and repeat blood culture. Acute kidney injury-resolved. Continue IVF. Lactic acidosis - Resolved - IV hydration Hypertension - Hold home meds - Normotensive Resume diet. Transfer to [facility]. DVT GI prophylaxis - Lovenox and Pepcid Johnathan Ludwig MD Apr 12, 2016 16:01
[2016-04-12] MEDS: AZITHROMYCIN INJ 500 MG in SODIUM CHLOR 0.9% 250 ML INJ 250 ML IV SCH (17:37)
[2016-04-12] MEDS: FAMOTIDINE 20 MG/2 ML VIAL IV PUSH SCH (20:20)
[2016-04-12] MEDS: VANCOMYCIN INJ 1,250 MG in SODIUM CHLOR 0.9% 250 ML INJ 250 ML IV SCH (20:21)
[2016-04-12] MEDS ORDERED: PHARMACY ORDERED LAB XX ONE (20:45)
[2016-04-13] VITALS (11 sets, daily range): BP systolic 122–181; BP diastolic 63–118; PULSE 70–108; RESP 20–32; TEMP 98.1–98.9; O2SAT 91–100
[2016-04-13] MEDS: CHLORHEXIDINE GLUCONATE 2 % 1 PACK (2 CLOTHS) TOP SCH ×2 (03:49→23:21)
[2016-04-13] MEDS: methylPREDNISolone SOD SUCC 40 MG/1 ML VIAL IV PUSH SCH ×2 (03:52→12:00)
[2016-04-13] MEDS: HEPARIN SODIUM - SQ 10,000 UNITS/ML VIAL SQ SCH ×3 (03:52→23:18)
[2016-04-13] MEDS: SODIUM CHLOR 0.9% 1000 ML INJ 1,000 ML IV SCH ×2 (03:52→16:54)
[2016-04-13] MEDS: PIPERACIL-TAZO 3.375 GM PREMIX 50 ML IV SCH ×4 (03:54→23:18)
[2016-04-13] MEDS: RESP: ALBUTEROL 2.5 MG/IPRATROPIUM 0.5 MG NEB (SCH) NEB ×5 (04:11→20:01)
[2016-04-13 07:28] LABS: AUTOMATED NEUTROPHIL # 10.4 TH/MM3 (1.8-7.7); BASOPHIL % 0.1 % (0.0-2.0); EOSINOPHIL % 0.1 % (0.0-4.0); HEMATOCRIT 32.8 % (39.0-51.0); HEMO FLAGS DIFF FINAL; LYMPH % 9.9 % (9.0-44.0); LYMPHOCYTE # 1.2 TH/MM3 (1.0-4.8); MEAN CELL VOLUME 88.3 FL (80.0-100.0); MEAN CORPUSCULAR HEMOGLOBIN 28.2 PG (27.0-34.0); MEAN CORPUSCULAR HGB CONC 31.9 % (32.0-36.0); MONO % 3.6 % (0.0-8.0); NEUT % 86.3 % (16.0-70.0); PLATELET COUNT 213 TH/MM3 (150-450); RED BLOOD COUNT 3.71 MIL/MM3 (4.50-5.90); RED CELL DISTRIBUTION WIDTH 17.3 % (11.6-17.2); WHITE BLOOD COUNT 12.1 TH/MM3 (4.0-11.0)
[2016-04-13 07:35] LABS: BICARBONATE 20.1 MEQ/L (21.0-32.0); POTASSIUM 3.8 MEQ/L (3.5-5.1)
[2016-04-13] MEDS: DOCUSATE SODIUM 100 MG/10 ML UDC G-TUBE SCH ×2 (09:00→21:00)
[2016-04-13] MEDS: ARTIFICIAL TEARS OPTH SOLN 15 ML BTL EACH EYE SCH ×3 (09:00→16:24)
[2016-04-13] MEDS: SODIUM CHLORIDE 0.9% FLUSH 5 ML FLUSH IV FLUSH SCH ×2 (09:00→23:19)
[2016-04-13] MEDS ORDERED: PNEUMOCOCCAL POLYVALENT INJ 25 MCG/0.5 ML SYR IM ONE (10:00)
--- NOTE | 2016-04-13 14:31 | HHI.PR ---
Subjective Remarks Follow-up for shortness of breath Poor historian, patient has dementia. Patient denies any shortness of breath, needs restraints, no overnight events per RN. Discussed with RN. Objective Vitals Vital Signs Date Time Temp Pulse Resp B/P Pulse Ox O2 Delivery O2 Flow Rate FiO2 04/13/16 12:00 98.9 85 22 135/65 99 04/13/16 12:00 75 04/13/16 10:00 76 04/13/16 08:00 98.6 83 20 146/63 97 04/13/16 08:00 83 04/13/16 07:43 100 Nasal Cannula 4.00 04/13/16 07:00 Nasal Cannula 4.00 04/13/16 04:00 76 04/13/16 04:00 98.1 76 32 156/118 95 04/13/16 02:00 71 04/13/16 00:00 98.5 70 24 122/70 96 04/13/16 00:00 70 04/12/16 22:00 86 04/12/16 20:00 98.0 93 17 144/63 92 04/12/16 20:00 100 04/12/16 19:00 Nasal Cannula 4.00 04/12/16 18:00 81 04/12/16 16:00 79 04/12/16 16:00 98.3 79 26 181/76 94 I/O 04/12/16 04/12/16 04/12/16 04/13/16 04/13/16 04/13/16 07:00 15:00 23:00 07:00 15:00 23:00 Intake Total 585 ml 1131 ml 881 ml 663 ml Output Total 452 ml 500 ml 350 ml 500 ml Balance 133 ml 631 ml 531 ml 163 ml Intake Oral 500 ml IV Total 585 ml 631 ml 881 ml 663 ml Output Urine Total 452 ml 500 ml 350 ml 500 ml # Bowel Movements 1 1 Result Diagram: 04/13/16 0535 04/13/16 0555 Objective Remarks GENERAL: Well-nourished, well-developed patient. EYES: No scleral icterus. NECK: Supple, trachea midline. CARDIOVASCULAR: Regular rate and rhythm without murmurs, gallops, or rubs. RESPIRATORY: Patient wheezing. Decreased breath sounds bilaterally. GASTROINTESTINAL: Abdomen soft, non-tender, nondistended. MUSCULOSKELETAL: No cyanosis, or edema. BACK: Nontender without obvious deformity. No CVA tenderness. Alert, awake, not oriented, moves extremities. A/P Assessment and Plan Acute on chronic respiratory failure secondary to COPD exacerbation-continue DuoNeb as her naproxen as needed, continue steroids, taper. Extubated . Chest x-ray unremarkable. Continue broad-spectrum with zosyn, azithromycin and vancomycin. WBC improving. UTI with MRSA, also with bacteremia-sensitive to vancomycin, continue vancomycin for now, stop linezolid, infectious disease consulted, follow-up echocardiogram and repeat blood culture. Blood culture also growing gram- positive cocci, echocardiogram showed an ejection fraction of 65-70%, no obvious vegetation. Acute kidney injury-resolved. Continue IVF. Lactic acidosis-resolved Hypertension-normotensive, hold home meds. Hypernatremia-start D5W, recheck tomorrow. Resume diet. Transfer to [facility]. DVT GI prophylaxis - Lovenox and Pepcid Johnathan Ludwig MD Apr 13, 2016 14:31
[2016-04-13] MEDS ORDERED: DEXTROSE 5% IN WATE 1000ML INJ 1,000 ML IV SCH (14:45)
--- NOTE | 2016-04-13 15:35 | PD.ID.CON ---
History of Present Illness Service Infectious disease Consult Requested By Dr. Ludwig Reason for Consult Evaluation and management of sepsis, gram-positive bacteremia, MRSA in the urine. Primary Care Physician Khoi Kennedy MD Diagnoses: History of Present Illness is an 89 y/o AAM with h/o COPD, presents to emergency room with respiratory failure. As per EMS, they were called to patient's home as patient was having increased agonal breathing. As per EMS, patient's home health nurse went to evaluate patient and patient was short of breath and wheezing. Patient was given an albuterol treatment with minimal relief of symptoms. When EMS arrived on scene, patient was unresponsive in respiratory distress. Patient was intubated for protection of airway. Per review of records patient has h/o COPD, HTN, hyperlipidemia, dementia. It appears from review of records patient has had recurrent admissions for COPD exacerbation between [place] and [facility]. ID consult was placed after sepsis workup on admission was reported abnormal. Blood cultures positive for Gram positive bacteremia and MRSA in urine. Review of Systems ROS Limitations: Poor Historian Past Family Social History Allergies: Coded Allergies: *MDRO Multi-Drug Resistant Organism (Verified Adverse Reaction, Unknown, ) MRSA PCR Screen POSITIVE - 04/10/2016 MRSA (urine) - 04/10/16 Past Medical History Hypertension. Hyperlipidemia. COPD/Asthma Prostate cancer Dementia Past Surgical History Prostatectomy Reported Medications Reported Meds & Active Scripts Active Symbicort Inh (Budesonide/Formoterol Fumarate) 160-4.5 Mcg/Act Aero 2 Puff INH Q12HR Levaquin (Levofloxacin) 750 Mg Tab 750 Mg PO Q48H Prednisone 20 Mg Tab 40 Mg PO DAILY Take 2 pills daily for 3 Days, then 1 pill daily for 3 days, then half a pill for 3 Days. Reported Stiolto Respimat Inh (Tiotropium-Olodaterol Inh) 2.5-2.5 Mcg/Act Aero 2 Puff INH DAILY Duoneb (Ipratropium-Albuterol Neb) 0.5-2.5 Mg/3 Ml Neb 1 Nebule INH Q4HR NEB Zoloft (Sertraline HCl) 25 Mg Tab 25 Mg PO DAILY Claritin (Loratadine) 5 Mg Chew 5 Mg CHEW DAILY Flomax (Tamsulosin HCl) 0.4 Mg Cap 0.4 Mg PO HS Aricept (Donepezil) 10 Mg Tab 10 Mg PO HS Lipitor (Atorvastatin Calcium) 40 Mg Tab 40 Mg PO EVERY OTHER DAY Iron (Ferrous Sulfate) 325 Mg Tab 325 Mg PO DAILY Take Aspirin EC (Aspirin) 81 Mg Tabdr 81 Mg PO DAILY Proair Hfa 8.5 GM Inh (Albuterol Sulfate) 90 Mcg/Act Aer 1 Puff INH Q4H PRN 108 mcg/actuation Active Ordered Medications Current Medications Medications (Trade) Dose Ordered Sig/Heena Route Start Time Stop Time Status Last Admin (NS 1000 ml Inj) 1,000 ml @ 85 mls/hr [id number] IV 04/09/16 19:00 04/13/16 03:52 (NS Flush) 2 ml UNSCH PRN IV FLUSH 04/09/16 17:45 (NS Flush) 2 ml BID IV FLUSH 04/09/16 21:00 04/13/16 09:00 (Tylenol) 650 mg Q6H PRN PO 04/09/16 17:45 (Morphine Inj) 2 mg Q2H PRN IV 04/09/16 17:45 (Pepcid Inj) 20 mg HS IV PUSH 04/09/16 21:00 04/12/16 20:20 (Ativan Inj) 1 mg Q1H PRN IV 04/09/16 17:45 04/12/16 20:19 (Tears Naturale Opth Soln) 1 drop TID EACH EYE 04/09/16 18:00 04/13/16 16:24 (Zofran Inj) 4 mg Q6H PRN IV 04/09/16 17:45 (Reglan Inj) 5 mg Q6H PRN IV 04/09/16 17:45 (Colace Liq) 100 mg Q12H G-TUBE 04/09/16 21:00 04/11/16 08:32 (Heparin Inj) 5,000 units Q8H SQ 04/09/16 22:00 04/13/16 14:00 Miscellaneous Information 1 [id number] XX 04/09/16 17:45 (Chlorhexidine 2% Cloth) 3 pack Taper DAILY@04 TOP 04/10/16 04:00 04/06/17 03:59 04/13/16 03:49 Chlorhexidine Gluconate 3 pack 3 pack UNSCH PRN TOP 04/09/16 17:45 Pharmacy Profile Note 0 ml @ 0 mls/hr UNSCH XX 04/09/16 17:45 Vancomycin HCl 1250 mg/Sodium Chloride 262.5 ml @ 250 mls/hr Q24H IV 04/10/16 21:00 04/12/16 20:21 (Zosyn 3.375 Gm Premix) 50 ml @ 100 mls/hr Q6H IV 04/11/16 18:00 04/13/16 16:54 Miscellaneous Information D/C ICU ELECTROLYTE ORDERS... UNSCH PRN XX 04/12/16 08:45 Miscellaneous Information ICU - CALL ORDERING PHYSIC... UNSCH PRN XX 04/12/16 08:45 (KCl 40 Meq Premix Inj) 100 ml @ 25 mls/hr UNSCH PRN IV 04/12/16 08:45 Potassium Chloride 40 meq 40 meq UNSCH PRN PO 04/12/16 08:45 Potassium Chloride 100 ml @ 50 mls/hr UNSCH PRN IV 04/12/16 08:45 Magnesium Sulfate 4 gm/Sodium Chloride 108 ml @ 54 mls/hr UNSCH PRN IV 04/12/16 08:45 (Magnesium Sulfate Inj/NS Inj) 104 ml @ 52 mls/hr UNSCH PRN IV 04/12/16 08:45 Magnesium Oxide 800 mg 800 mg UNSCH PRN PO 04/12/16 08:45 (Sodium Phosphate Inj/NS 250 ml Inj) 260 ml @ 43.333 mls/ hr UNSCH PRN IV 04/12/16 08:45 04/12/16 09:56 Potassium Phosphate 2000 mg 2,000 mg UNSCH PRN PO/TUBE 04/12/16 08:45 (Potassium Phosphate Inj/NS 250 ml Inj) 260 ml @ 43.333 mls/ hr UNSCH PRN IV 04/12/16 08:45 Miscellaneous Information SPECIFIC LAB TO BE DRAWN:HERMILO TROUGH DATE TO BE ONCE ONCE XX 04/13/16 20:45 04/13/16 20:46 (SoluMEDROL INJ) 40 mg Q8HR IV PUSH 04/13/16 22:00 Azithromycin 500 mg 500 mg DAILY PO 04/14/16 09:00 (D5W 1000 ml Inj) 1,000 ml @ 84 mls/hr [id number] IV 04/13/16 14:45 04/13/16 14:45 Family History Mother of an VT at age 80. Father of prostate cancer at age 79. Social History Patient's a former smoker. He quit 40 years ago. Patient denies drinking alcohol. Patient is a . Patient has 3 grownup children. Physical Exam Vital Signs Vital Signs Date Time Temp Pulse Resp B/P Pulse Ox O2 Delivery O2 Flow Rate FiO2 04/13/16 14:00 76 04/13/16 12:00 98.9 85 22 135/65 99 04/13/16 12:00 75 04/13/16 10:00 76 04/13/16 08:00 98.6 83 20 146/63 97 04/13/16 08:00 83 04/13/16 07:43 100 Nasal Cannula 4.00 04/13/16 07:00 Nasal Cannula 4.00 04/13/16 04:00 76 04/13/16 04:00 98.1 76 32 156/118 95 04/13/16 02:00 71 04/13/16 00:00 98.5 70 24 122/70 96 04/13/16 00:00 70 04/12/16 22:00 86 04/12/16 20:00 98.0 93 17 144/63 92 04/12/16 20:00 100 04/12/16 19:00 Nasal Cannula 4.00 04/12/16 18:00 81 04/12/16 16:00 79 04/12/16 16:00 98.3 79 26 181/76 94 Physical Exam GENERAL: Obese AAM patient, in no apparent distress. SKIN: No rashes. HEAD: Atraumatic. Normocephalic. No temporal or scalp tenderness. EYES: Pupils equal round and reactive. Extraocular motions intact. No scleral icterus. No injection or drainage. ENT: Nose without bleeding, purulent drainage or septal hematoma. Throat without erythema, tonsillar hypertrophy or exudate. Uvula midline. Airway patent. NECK: Trachea midline. Supple, nontender, no meningeal signs. CARDIOVASCULAR: HS audible. No murmur appreciated. RESPIRATORY: Clear to auscultation. Breath sounds equal bilaterally. No wheezes , rales, or rhonchi. GASTROINTESTINAL: Abdomen soft, non-tender, nondistended. MUSCULOSKELETAL: Extremities without clubbing, cyanosis, or edema. NEUROLOGICAL: Awake and alert. Confused. Not oriented Psych: cooperative IV line sites with no e.o infection. Laboratory Laboratory Tests Test 04/12/16 04/13/16 04/13/16 22:00 05:35 05:55 Phosphorus Level 2.9 White Blood Count 12.1 Red Blood Count 3.71 Hemoglobin 10.5 Hematocrit 32.8 Mean Corpuscular Volume 88.3 Mean Corpuscular Hemoglobin 28.2 Mean Corpuscular Hemoglobin 31.9 Concent Red Cell Distribution Width 17.3 Platelet Count 213 Mean Platelet Volume 9.4 Neutrophils (%) (Auto) 86.3 Lymphocytes (%) (Auto) 9.9 Monocytes (%) (Auto) 3.6 Eosinophils (%) (Auto) 0.1 Basophils (%) (Auto) 0.1 Neutrophils # (Auto) 10.4 Lymphocytes # (Auto) 1.2 Monocytes # (Auto) 0.4 Eosinophils # (Auto) 0.0 Basophils # (Auto) 0.0 CBC Comment DIFF FINAL Differential Comment Sodium Level 153 Potassium Level 3.8 Chloride Level 122 Carbon Dioxide Level 20.1 Anion Gap 11 Blood Urea Nitrogen 27 Creatinine 1.26 Estimat Glomerular Filtration 65 Rate Random Glucose 148 Calcium Level 8.1 Date/Time Procedure Status Source Growth 04/13/16 06:00 Aerobic Blood Culture Received Blood Peripheral Pending 04/13/16 06:00 Anaerobic Blood Culture Received Blood Peripheral Pending 04/10/16 05:30 Urine Culture - Final Complete Urine Catheterized Urine S. Aureus Mrsa 04/10/16 05:30 Legionella Antigen - Final Complete Urine Catheterized Urine PRESUMPTIVE NEGATIVE FOR LEGIONELLA P... 04/10/16 05:30 Streptococcus pneumoniae Antigen (M - Final Complete Urine Catheterized Urine PRESUMPTIVE NEGATIVE FOR STREPTOCOCCU... 04/09/16 16:30 Influenza Types A,B Antigen (CALOS) - Final Complete Nasal Aspirate NEGATIVE FOR FLU A AND B ANTIGEN.... 04/09/16 16:20 Aerobic Blood Culture - Preliminary Resulted Blood Peripheral NO GROWTH IN 4 DAYS 04/09/16 16:20 Anaerobic Blood Culture - Preliminary Resulted Blood Peripheral NO GROWTH IN 4 DAYS Result Diagram: 04/13/16 0535 04/13/16 0555 Imaging Last Impressions Chest X-Ray 04/09/16 1600 Signed Impressions: Service Date/Time: Saturday, April 09, 2016 16:29 - CONCLUSION: 1. No acute cardiopulmonary disease. 2. Satisfactory position of endotracheal tube as above. Dinesh House MD Assessment and Plan Assessment and Plan Sepsis present on admission. Gram positive bacteremia MRSA in urine. COPD exacerbation. Dementia. Social factors could be contributing to recurrent admissions for COPD exacerbations. Need to address family situation. Recs: Continue Zosyn IV Continue Vanco IV (target 15-20) for now: bacteremia. Continue Azithro IV Follow cultures Follow clinically. Will d/w case management about family situation. Palliative care consult to address goals of therapy and family meeting to discuss COPD exacerbations etc. Juana Rizvi MD Apr 13, 2016 15:35
[2016-04-13] MEDS: RESP: ALBUTEROL 2.5 MG/IPRATROPIUM 0.5 MG NEB (PRN) INH (17:24)
[2016-04-13] MEDS ORDERED: RESP: RACEPINEPHRINE 2.25% 0.5 ML NEB ONE (18:30)
[2016-04-13] MEDS ORDERED: RESP: RACEPINEPHRINE 2.25% 0.5 ML NEB NEB PRN ×2 (18:45→20:40)
[2016-04-13] MEDS ORDERED: methylPREDNISolone SOD SUCC 125 MG/2 ML VIAL IV PUSH ONE (19:45)
--- NOTE | 2016-04-13 20:05 | RADRPT ---
EXAM DATE/TIME: 04/13/2016 19:52 [place] COMPARISON: CHEST SINGLE AP, April 09, 2016, 16:29. INDICATIONS : Short of breath, wheezing. MEDICAL HISTORY : Hypertension. Chronic obstructive pulmonary disease. SURGICAL HISTORY : None. ENCOUNTER: Initial ACUITY: 1 day PAIN SCORE: Non-responsive. LOCATION: Bilateral chest FINDINGS: The patient is rotated towards the right. The heart size is grossly normal. There is increased dens ity at the left base. The right lung appears clear. CONCLUSION: Increased density at the left base silhouetting portions of the left hemidiaphragm co nsistent with some degree of atelectasis or consolidation in this region. Jorge Desai MD on April 13, 2016 at 20:00 Board Certified Radiologist. This report was verified electronically.
[2016-04-13 20:16] LABS: BLOOD GAS BASE EXCESS -6.1 mmol/L (-2-2); BLOOD GAS CARBOXYHEMOGLOBIN 0.9 % (0-4); BLOOD GAS HCO3 18 mmol/L (22-26); BLOOD GAS METHEMOGLOBIN 0.7 % (0-2); BLOOD GAS O2 HGB SATURATION 94 % (90-100); BLOOD GAS OXYGEN CONTENT 14.8 Vol % (12.0-20.0); BLOOD GAS PCO2 31 mmHg (38-42); BLOOD GAS PO2 84 mmHg (61-120); BLOOD GAS TOTAL HGB 11.1 G/DL (12.0-16.0); TEMP CORR TO 98.6
[2016-04-13 20:18] LABS: CRITICAL VALUE YES; DRAW SITE RT RADIAL; LITER FLOW 4 L/M; NUMBER OF ARTERIAL PUNCTURES 1; OXYGEN DEVICE NASAL CANNULA; STAT YES; ULNAR PULSE PRESENT
[2016-04-13] MEDS ORDERED: PHARMACY ORDERED LAB XX ONE (20:45)
[2016-04-13] MEDS ORDERED: DEXAMETHASONE SOD PHOS 20 MG/5 ML VIAL IV PUSH ONE (21:00)
[2016-04-13] MEDS ORDERED: RESP: ALBUTEROL 2.5MG/0.5ML CONTINUOUS NEB 12-PACK NEB SCH (21:00)
[2016-04-13] MEDS ORDERED: FUROSEMIDE 40 MG/4 ML VIAL IV PUSH ONE (21:45)
--- NOTE | 2016-04-13 21:50 | HHI.PR ---
Addendum to Inpatient Note Addendum Reason: Additional Documentation Additional Information I was called by patient's nurse that patient was having stridor upon her initial arrival at the change of shift. Patient was having trouble with stridors starting around 5 PM when his granddaughter visited him and he was given racemic epinephrine, albuterol nebulizers, and Solu-Medrol. He initially improved but similar episode returned again and therefore I was called. I had obtained a chest x-ray, ABG at that time and also requested for fluids to be stopped for now. His latest echo showed diastolic dysfunction grade 1. Additional dose of Solu-Medrol 125 mg IV was also given together with nebulizer treatments. However within an hour or so, patient still was not improving much in terms of stridors and therefore had come to see patient at the bedside. He is awake, alert, although does have baseline dementia. He is not really able to give me meaningful history in terms of his symptoms. I recognize the granddaughter at the bedside. Patient had similar episode in his previous admission at which time I was called at night as well. At that time patient did improve with racemic epinephrine and the overall nebulizer treatments. On exam, patient lung sounds are clear. Heart rate is regular, tachycardic around 100. No murmur appreciated. Abdomen is distended, however nontender. Questionable for blocked or distention. No calf asymmetry or edema noted. Chart reviewed in detail. Patient was being managed here for respiratory failure secondary to COPD exacerbation requiring intubation and ventilator support on April 09, 2016. He was extubated on April 11, 2016. He was also found to have MRSA UTI and MSSA bacteremia. He was being managed by infectious disease specialist. Echocardiogram did not reveal any vegetations. He did have acute renal injury for which he was given IV fluids during his hospitalization. And his previous hospitalization in January 2016, he was not intubated. However he did similarly presented with stridor in the middle of the nights when they called me. Impression: Stridors/upper airway obstructionin a patient with recent intubation/ extubation on April 11, 2016 Tachycardia Plan: Give a second dose of racemic epinephrine. Would change racemic epinephrine nebs to every 2 hours when necessary. We'll watch for tachycardia. Change to albuterol continuous. Transfer patient to ICU for the above treatment and close monitoring. ABGresults personally reviewed. No significant hypoxia/CO2 retention. Chest x-raypersonally reviewed. No marline pulmonary edema/pneumothorax/pleural effusions. Consolidative changes which were present previously. DC Solu-Medrol. Decadron 10 mg IV 1 dose given. Continue Decadron at 4 mg IV every 6 hours. GI prophylaxis with pantoprazole 40 mg IV every 12 hours due to high steroid use. Head of bed elevation. We'll give trial of Lasix 40 mg IV 1 dose now for help with secretions/to keep dryness. We'll continue antibiotics regimen as per ID recommendations. Case was discussed with erp specialist lamination technician who evaluated patient at the bedside. Patient significantly improved after the above treatment and therefore he will be transferred to intensive care unit under hospitalist service. If he does need reintubation, erp specialist will be available to take over the care. At this point, patient is much more improved. Critical care time 35 minutes Ivis Herrera MD Apr 13, 2016 21:50
[2016-04-13] MEDS ORDERED: methylPREDNISolone SOD SUCC 40 MG/1 ML VIAL IV PUSH SCH (22:00)
--- NOTE | 2016-04-13 23:17 | HHI.CCPN ---
Subjective Remarks/Hospital Course 89-year-old male with history of COPD, presents to emergency room with respiratory failure. As per documentation, EMS were called to patient's home as patient was having increased agonal breathing. As per EMS, patient's home health nurse went to evaluate patient and patient was short of breath and wheezing. Patient was given an albuterol treatment with minimal relief of symptoms. When EMS arrived on scene, patient was unresponsive in respiratory distress. Patient was intubated for protection of airway. 04/13: called to evaluate patient on the floor, bed 1432 for stridor and respiratory distress. patient recently extubated and transferred to the floor. on my evaluation, the patient has already received albuterol and racemic epinephrine. he was no longer in distress on my evaluation, but did have some residual expiratory stridor. patient does not complain of any shortness of breath, chest pain. Objective Vital Signs Date Time Temp Pulse Resp B/P Pulse Ox O2 Delivery O2 Flow Rate FiO2 04/13/16 20:04 98 Nasal Cannula 4.00 04/13/16 19:22 98.6 108 20 181/95 04/11/16 08:40 40 Intake and Output 04/12/16 04/12/16 04/13/16 08:00 16:00 00:00 Intake Total 585 ml 1131 ml 881 ml Output Total 452 ml 500 ml 350 ml Balance 133 ml 631 ml 531 ml Result Diagram: 04/13/16 0535 04/13/16 0555 Other Results Laboratory Tests Test 04/13/16 20:02 Blood Gas Puncture Site RT RADIAL Blood Gas Patient Temperature 98.6 Blood Gas HCO3 18 mmol/L (22-26) Blood Gas Base Excess -6.1 mmol/L (-2-2) Blood Gas Oxygen Saturation 94 % (90-100) Arterial Blood pH 7.38 (7.380-7.420) Arterial Blood Partial 31 mmHg (38-42) Pressure CO2 Arterial Blood Partial 84 mmHg Pressure O2 (61-120) Arterial Blood Oxygen Content 14.8 Vol % (12.0-20.0) Arterial Blood 0.9 % (0-4) Carboxyhemoglobin Arterial Blood Methemoglobin 0.7 % (0-2) Blood Gas Hemoglobin 11.1 G/DL (12.0-16.0) Oxygen Delivery Device NASAL CANNULA Blood Gas Liter Flow 4 L/M Objective Remarks gen: elderly male, sitting in bed. chest: not tachypneic. unlabored. mild expiratory stridor. extr: no peripheral edema. A/P Problem List: (1) COPD exacerbation ICD Code: J44.1 Status: Acute (2) Leukocytosis ICD Code: D72.829 Status: Acute (3) Encephalopathy ICD Code: G93.40 Status: Acute (4) Acute hypoxemic respiratory failure ICD Code: J96.01 Status: Acute (5) Renal insufficiency ICD Code: N28.9 Status: Acute Assessment and Plan Assessment: 89yM recently extubated from acute hypoxic respiratory failure. I discussed his care with the hospitalist electrical electronics technician and she feels that he is stable to stay on the hospitalist service. I also agree with the plan to transfer him to ICU for an additional 12-24h of close monitoring. I have discussed my recommendations with her: Active Problems: Upper Airway edema Stridor Recommendations: --transfer to ICU --remain on hospitalist service --decadron 4mg iv q6h x 24-48h --HOB at 60 - 90 degrees --albuterol and racemic epi nebs as needed --if the hospitalist service deems it appropriate from a renal standpoint, gentle diuresis to prevent further airway edema --does not meet criteria for intubation at this time. --apparently he had similar problems with stridor during a previous admission. I agree with ENT consult to evaluate for structural abnormalities. Critical Care Medicine team will remain aware of the patient and will intervene if stridor or respiratory distress worsens. Otherwise, the patient will remain on the hospitalist service. [facility] will sign-off. Antonio Ashley MD Apr 13, 2016 23:17
[2016-04-13] MEDS: PANTOPRAZOLE SODIUM 40 MG VIAL IV PUSH SCH (23:19)
[2016-04-13] MEDS: VANCOMYCIN INJ 1,250 MG in SODIUM CHLOR 0.9% 250 ML INJ 250 ML IV SCH (23:20)
[2016-04-13] MEDS: DEXAMETHASONE SOD PHOS 4 MG/ML VIAL IV PUSH SCH (23:21)
[2016-04-14] VITALS (11 sets, daily range): BP systolic 121–184; BP diastolic 61–83; PULSE 75–113; RESP 15–20; TEMP 97.6–98.3; O2SAT 95–97
[2016-04-14] MEDS: RESP: ALBUTEROL 2.5 MG/IPRATROPIUM 0.5 MG NEB (SCH) NEB (01:22)
[2016-04-14] MEDS: RESP: RACEPINEPHRINE 2.25% 0.5 ML NEB NEB PRN ×2 (03:16→10:06)
[2016-04-14] MEDS: PIPERACIL-TAZO 3.375 GM PREMIX 50 ML IV SCH ×2 (06:00→13:10)
[2016-04-14] MEDS: HEPARIN SODIUM - SQ 10,000 UNITS/ML VIAL SQ SCH ×2 (06:00→13:09)
[2016-04-14] MEDS: DEXAMETHASONE SOD PHOS 4 MG/ML VIAL IV PUSH SCH ×2 (06:00→13:10)
[2016-04-14 07:11] LABS: BICARBONATE 19.2 MEQ/L (21.0-32.0); POTASSIUM 3.7 MEQ/L (3.5-5.1)
[2016-04-14] MEDS: ARTIFICIAL TEARS OPTH SOLN 15 ML BTL EACH EYE SCH ×2 (09:00→13:00)
[2016-04-14] MEDS ORDERED: AZITHROMYCIN 250 MG TAB PO SCH (09:00)
[2016-04-14] MEDS: DOCUSATE SODIUM 100 MG/10 ML UDC G-TUBE SCH (09:23)
[2016-04-14] MEDS: SODIUM CHLORIDE 0.9% FLUSH 5 ML FLUSH IV FLUSH SCH (09:23)
[2016-04-14] MEDS: PANTOPRAZOLE SODIUM 40 MG VIAL IV PUSH SCH (10:00)
--- NOTE | 2016-04-14 13:08 | PD.CONS ---
Consult Service Palliative Care Consult Requested By Donnie Herrera MD. Primary Care Physician Khoi Kennedy MD Reason for Consultation a. To assist with evaluation and management of symptoms including: debility and shortness of breath. b. To assist medical decision maker(s) with: better understanding of current medical conditions; weighing benefits/burdens of medical treatment options; making medical treatment decisions. (Haleigh Ames) HPI History of Present Illness Mr. Campbell is an 89-year-old male with a medical history of COPD, dementia, and recent hospitalizations who presented to the ED via EMS on 04/09/16 secondary to respiratory distress. As per family, patient was recently discharged from a hospitalization secondary to COPD exacerbation. He was discharged home with home health but only received 3-4 services as per family. Granddaughter Jennifer, who is a nurse, found patient short of breath and wheezing. Albuterol was given with minimal relief, EMS was called and patient was intubated in the field for airway protection. Upon ED arrival, chest x-ray revealed no acute cardiopulmonary disease. ED labs include WBC 19.8, Hgb 11.9, platelet count 254. Lactic acid 4.5. Sodium 140, potassium 4.7, BUN/creatinine 20/1.25. MRSA PCR nares positive. Blood cultures to 04/09/16 positive for gram positive cocci. Patient was admitted secondary to acute on chronic respiratory failure, acute kidney injury, lactic acidosis and hypertension. Urine culture 04/10/16 with S. Aureus MRSA. Urine Legionella antigen negative. Echocardiogram 04/10/16 revealing EF of 65-70%, mild mitral and tricuspid regurgitation. Infectious disease -Dr. Montero consulted secondary to sepsis. Patient has been placed on antibiotics. Repeat blood culture 04/13/16 no growth in one day thus far. Repeat chest x-ray showing increased density at the left base consistent with some degree of atelectasis or consolidation. Patient extubated on 04/11/16. Latest laboratory results 04/13/16 WBC 12.1, Hgb 10.5, platelet count 213. NA 150, K 3.7, BUN/creatinine 31/1.40. Albumin 2.8. On 04/13/16, while on the medical floor patient developed stridor and respiratory distress. He was subsequently transferred to ICU for close monitoring and management. Pending ENT consult for evaluation of possible structural abnormalities. Palliative care has been consulted for further clarifications of goals of care in the setting of patient's progressive COPD with exacerbations, recent hospitalization , progressive functional and cognitive decline and multiple comorbidities. Patient seen in ICU. He was laying in bed in no acute distress. Alert to self , unable to tell me his name but unable to take me location or time. Confused. Denies shortness of breath, nausea/vomiting or discomfort. Patient tells me that he has 3 or 4 children, unable to provide remains. Telephone call to patient's granddaughter Jennifer Campbell. Agreed to meet with palliative care. Met with Jennifer patient's daughter Kimi. Medical update provided. Review progression of his illness, COPD exacerbations requiring hospitalizations, and recent cognitive and functional decline. Discussed prior hospitalization back in January secondary to COPD exacerbation and acute hypoxemic respiratory failure. Granddaughter Jennifer reports that she moved to patient's house in December 2015 secondary to his decline in health. Patient independent with minimal assistance prior to these. Since December 2015, patient requiring moderate assistance with ADLs. Progressive cognitive and functional decline. Worsen after hospitalization in January. Patient return home with home health but only received 3 or 4 visits. Review likely trajectory of progressive decline an acute complication secondary to COPD. Discuss CPR/intubation and mechanical ventilation in the setting of patient's current clinical condition. Family electing DNR/DNI. Family verbalized wishing for patient to return home and to avoid further hospitalizations. Hospice philosophy and services discussed, family aware of hospice as patient's under their services back in 2000. Family wishing to meet with hospice for further information, considering discharge with hospice at this point. Ongoing emotional support and active listening provided. . Function/Cognitive Trajectory Mainly independent with minimal assistance prior to December 2015. Since then, patient requiring moderate assistance with ADLs. Progressive cognitive and functional decline. Worsen after hospitalization in January 2016. Patient returned home on 02/22/16 with home health but only received 3 or 4 visits. . (Haleigh Ames) Review of Systems ROS Limitations: Clinical Condition, Altered Mental Status, Poor Historian Constitutional: COMPLAINS OF: Change in appetite, Generalized weakness, DENIES : Weight loss Endocrine: DENIES: Heat/cold intolerance Eyes: COMPLAINS OF: Vision loss Ears, nose, mouth, throat: COMPLAINS OF: Hearing loss, DENIES: Nasal discharge , Oral lesions Respiratory: COMPLAINS OF: Shortness of breath, DENIES: Cough Cardiovascular: DENIES: Chest pain, Lower Extremity Edema Gastrointestinal: DENIES: Abdominal pain, Constipation, Diarrhea, Nausea, Vomiting Musculoskeletal: COMPLAINS OF: Stiffness Integumentary: DENIES: Abnormal pigmentation Hematologic/Lymphatics: DENIES: Bruising Immunologic/Allergic: COMPLAINS OF: Eczema Neurologic: COMPLAINS OF: Poor Balance Psychiatric: COMPLAINS OF: Confusion Other ROS: Limited ROS secondary to patient's confusion. ROS obtained from patient, patient's family, and medical records. (Haleigh Ames) Past Family Social History Coded Allergies: *MDRO Multi-Drug Resistant Organism (Verified Adverse Reaction, Unknown, ) MRSA PCR Screen POSITIVE - 04/10/2016 MRSA (urine) - 04/10/16 Past Medical History COPD Dementia, mild Hyperlipidemia Hypertension Depression History of prostate cancer . Past Surgical History Prostatectomy . Reported Medications Stiolto Respimat Inh (Tiotropium-Olodaterol Inh) 2.5-2.5 Mcg/Act Aero 2 Puff INH DAILY Duoneb (Ipratropium-Albuterol Neb) 0.5-2.5 Mg/3 Ml Neb 1 Nebule INH Q4HR NEB Zoloft (Sertraline HCl) 25 Mg Tab 25 Mg PO DAILY Claritin (Loratadine) 5 Mg Chew 5 Mg CHEW DAILY Flomax (Tamsulosin HCl) 0.4 Mg Cap 0.4 Mg PO HS Aricept (Donepezil) 10 Mg Tab 10 Mg PO HS Lipitor (Atorvastatin Calcium) 40 Mg Tab 40 Mg PO EVERY OTHER DAY Iron (Ferrous Sulfate) 325 Mg Tab 325 Mg PO DAILY Aspirin EC (Aspirin) 81 Mg Tabdr 81 Mg PO DAILY Proair Hfa 8.5 GM Inh (Albuterol Sulfate) 90 Mcg/Act Aer 1 Puff INH Q4H PRN 108 mcg/actuation . Current Medications Medications (Trade) Dose Ordered Sig/Heena Route Start Time Stop Time Status Last Admin (NS Flush) 2 ml UNSCH PRN IV FLUSH 04/09/16 17:45 (NS Flush) 2 ml BID IV FLUSH 04/09/16 21:00 04/14/16 09:23 (Tylenol) 650 mg Q6H PRN PO 04/09/16 17:45 (Morphine Inj) 2 mg Q2H PRN IV 04/09/16 17:45 (Tears Naturale Opth Soln) 1 drop TID EACH EYE 04/09/16 18:00 04/14/16 09:00 (Zofran Inj) 4 mg Q6H PRN IV 04/09/16 17:45 (Reglan Inj) 5 mg Q6H PRN IV 04/09/16 17:45 (Colace Liq) 100 mg Q12H G-TUBE 04/09/16 21:00 04/14/16 09:23 (Heparin Inj) 5,000 units Q8H SQ 04/09/16 22:00 04/14/16 06:00 Miscellaneous Information 1 Q361D XX 04/09/16 17:45 (Chlorhexidine 2% Cloth) 3 pack Taper DAILY@04 TOP 04/10/16 04:00 04/06/17 03:59 04/13/16 23:21 Chlorhexidine Gluconate 3 pack 3 pack UNSCH PRN TOP 04/09/16 17:45 Pharmacy Profile Note 0 ml @ 0 mls/hr UNSCH XX 04/09/16 17:45 Vancomycin HCl 1250 mg/Sodium Chloride 262.5 ml @ 250 mls/hr Q24H IV 04/10/16 21:00 04/13/16 23:20 (Zosyn 3.375 Gm Premix) 50 ml @ 100 mls/hr Q6H IV 04/11/16 18:00 04/14/16 06:00 Miscellaneous Information D/C ICU ELECTROLYTE ORDERS... UNSCH PRN XX 04/12/16 08:45 Miscellaneous Information ICU - CALL ORDERING PHYSIC... UNSCH PRN XX 04/12/16 08:45 (KCl 40 Meq Premix Inj) 100 ml @ 25 mls/hr UNSCH PRN IV 04/12/16 08:45 Potassium Chloride 40 meq 40 meq UNSCH PRN PO 04/12/16 08:45 Potassium Chloride 100 ml @ 50 mls/hr UNSCH PRN IV 04/12/16 08:45 Magnesium Sulfate 4 gm/Sodium Chloride 108 ml @ 54 mls/hr UNSCH PRN IV 04/12/16 08:45 (Magnesium Sulfate Inj/NS Inj) 104 ml @ 52 mls/hr UNSCH PRN IV 04/12/16 08:45 Magnesium Oxide 800 mg 800 mg UNSCH PRN PO 04/12/16 08:45 (Sodium Phosphate Inj/NS 250 ml Inj) 260 ml @ 43.333 mls/ hr UNSCH PRN IV 04/12/16 08:45 04/12/16 09:56 Potassium Phosphate 2000 mg 2,000 mg UNSCH PRN PO/TUBE 04/12/16 08:45 (Potassium Phosphate Inj/NS 250 ml Inj) 260 ml @ 43.333 mls/ hr UNSCH PRN IV 04/12/16 08:45 (Zithromax) 500 mg DAILY PO 04/14/16 09:00 04/14/16 09:23 (Decadron Inj) 4 mg Q6HR IV PUSH 04/14/16 00:00 04/14/16 06:00 (Protonix Inj) 40 mg Q12H IV PUSH 04/13/16 22:00 04/14/16 10:00 Miscellaneous Information SPECIFIC LAB TO BE ... ONCE ONCE XX 04/16/16 20:45 04/16/16 20:46 Family History Mother at age 80 of [place] Father at age 79 of prostate cancer Patient has 3 children who are alive and well. . Substance Use Tobacco: Former smoker. Quit 40 years ago. Alcohol: None. Prescription med abuse: None. Illicits: None. . Psychosocial History Patient is retired, . His in 2000. He has 3 children, Kimi , Kevin and Fran who lives in [place]. Patient residing with granddaleah Rodriguez prior to this hospitalization. . Spiritual/Cultural Factors No spiritual affiliation. . (Haleigh Ames) Living Will: Completed, but not made available Health Care Surrogate: Completed, but not made available Durable Power of Warehouse Examiner: Never completed Date completed: Pending documentation from family. . Health Care Surrogate(s): As per patient's daughter Kimi, granddaughter Pilar Campbell designated as healthcare surrogate. . Documented care wishes: Pending living well. . Family/friends goals: No code. DNR/DNI. Family wishing for discharge home with hospice services. Pending hospice consultation. . Ethical and Legal Issues No ethical legal issues have been identified. . (Haleigh Ames) Physical Exam Vital Signs Date Time Temp Pulse Resp B/P Pulse Ox O2 Delivery O2 Flow Rate FiO2 04/14/16 12:00 75 04/14/16 12:00 98.0 77 18 155/65 97 04/14/16 10:06 95 Nasal Cannula 2.00 04/14/16 10:00 90 04/14/16 10:00 98.0 78 15 184/83 95 04/14/16 08:00 98.0 78 15 184/83 95 04/14/16 08:00 90 04/14/16 07:15 Nasal Cannula 4.00 04/14/16 06:00 78 04/14/16 04:00 98.0 78 15 133/68 95 04/14/16 04:00 113 04/14/16 02:00 83 04/14/16 01:23 96 Nasal Cannula 4.00 04/14/16 00:00 Nasal Cannula 4.00 04/14/16 00:00 97.6 90 20 121/61 95 04/14/16 00:00 90 04/13/16 20:04 98 Nasal Cannula 4.00 04/13/16 19:22 98.6 108 20 181/95 91 04/13/16 16:00 98.8 75 20 164/73 94 04/13/16 14:00 76 04/13/16 04/14/16 19:00 07:00 Intake Total 990 ml 329 ml Output Total 600 ml 1850 ml Balance 390 ml -1521 ml Intake Oral 480 ml IV Total 510 ml 329 ml Output Urine Total 600 ml 1850 ml # Bowel Movements 1 Exam CONSTITUTIONAL/GENERAL: This is an elderly patient in no apparent distress. Appears his stated age. TUBES/LINES/DRAINS: PIV's, SCDs, Cabrera catheter. Bilateral soft wrist restraints. SKIN: Very dry skin.. Scatter ecchymoses on upper extremities. No wounds seen anteriorly. Skin temperature appropriate. Not diaphoretic. HEAD: Atraumatic. Normocephalic. EYES: Pupils equal and round and reactive. Extraocular motions intact. No scleral icterus. No injection or drainage. Bilateral arcus senilis. ENT: Hard of hearing, hearing aid on left ear. Nose without bleeding or purulent drainage. Throat without visible erythema, exudates, masses, or lesions. Dry lips. NECK: Trachea midline. Supple, nontender. CARDIOVASCULAR: Regular rate and rhythm. Peripheral pulses symmetric. RESPIRATORY/CHEST: Symmetric. Expiratory wheezes bilateral. Abdominal breathing. GASTROINTESTINAL: Abdomen soft, non-tender, nondistended. No guarding. Bowel sounds present. GENITOURINARY: Without palpable bladder distension. Cabrera catheter in place. MUSCULOSKELETAL: Extremities without clubbing, cyanosis, or edema. No mottling or clubbing NEUROLOGICAL: Awake, alert to self. Confused. Follows some commands. Moves all extremities. PSYCHIATRIC: No obvious anxiety/depression. Calm. . (Haleigh Ames) Diagnostic Tests Laboratory Laboratory Tests Test 04/12/16 04/12/16 04/13/16 04/13/16 03:58 22:00 05:35 05:55 White Blood Count 16.4 TH/MM3 12.1 TH/MM3 (4.0-11.0) (4.0-11.0) Red Blood Count 3.79 MIL/MM3 3.71 MIL/MM3 (4.50-5.90) (4.50-5.90) Hemoglobin 10.9 GM/DL 10.5 GM/DL (13.0-17.0) (13.0-17.0) Hematocrit 33.2 % 32.8 % (39.0-51.0) (39.0-51.0) Mean Corpuscular Volume 87.6 FL 88.3 FL (80.0-100.0) (80.0-100.0) Mean Corpuscular Hemoglobin 28.7 PG 28.2 PG (27.0-34.0) (27.0-34.0) Mean Corpuscular Hemoglobin 32.8 % 31.9 % Concent (32.0-36.0) (32.0-36.0) Red Cell Distribution Width 17.2 % 17.3 % (11.6-17.2) (11.6-17.2) Platelet Count 229 TH/MM3 213 TH/MM3 (150-450) (150-450) Mean Platelet Volume 9.2 FL 9.4 FL (7.0-11.0) (7.0-11.0) Neutrophils (%) (Auto) 88.6 % 86.3 % (16.0-70.0) (16.0-70.0) Lymphocytes (%) (Auto) 8.2 % 9.9 % (9.0-44.0) (9.0-44.0) Monocytes (%) (Auto) 3.1 % (0.0-8.0) 3.6 % (0.0-8.0) Eosinophils (%) (Auto) 0.0 % (0.0-4.0) 0.1 % (0.0-4.0) Basophils (%) (Auto) 0.1 % (0.0-2.0) 0.1 % (0.0-2.0) Neutrophils # (Auto) 14.5 TH/MM3 10.4 TH/MM3 (1.8-7.7) (1.8-7.7) Lymphocytes # (Auto) 1.3 TH/MM3 1.2 TH/MM3 (1.0-4.8) (1.0-4.8) Monocytes # (Auto) 0.5 TH/MM3 0.4 TH/MM3 (0-0.9) (0-0.9) Eosinophils # (Auto) 0.0 TH/MM3 0.0 TH/MM3 (0-0.4) (0-0.4) Basophils # (Auto) 0.0 TH/MM3 0.0 TH/MM3 (0-0.2) (0-0.2) CBC Comment DIFF FINAL DIFF FINAL Differential Comment Sodium Level 149 MEQ/L 153 MEQ/L (136-145) (136-145) Potassium Level 4.0 MEQ/L 3.8 MEQ/L (3.5-5.1) (3.5-5.1) Chloride Level 118 MEQ/L 122 MEQ/L (98-107) (98-107) Carbon Dioxide Level 21.6 MEQ/L 20.1 MEQ/L (21.0-32.0) (21.0-32.0) Anion Gap 9 MEQ/L (5-15) 11 MEQ/L (5-15) Blood Urea Nitrogen 28 MG/DL (7-18) 27 MG/DL (7-18) Creatinine 1.22 MG/DL 1.26 MG/DL (0.60-1.30) (0.60-1.30) Estimat Glomerular Filtration 68 ML/MIN (>89) 65 ML/MIN (>89) Rate Random Glucose 130 MG/DL 148 MG/DL (74-106) (74-106) Calcium Level 8.5 MG/DL 8.1 MG/DL (8.5-10.1) (8.5-10.1) Phosphorus Level 2.0 MG/DL 2.9 MG/DL (2.5-4.9) (2.5-4.9) Magnesium Level 2.8 MG/DL (1.5-2.5) Total Bilirubin 0.4 MG/DL (0.2-1.0) Aspartate Amino Transf 20 U/L (15-37) (AST/SGOT) Alanine Aminotransferase 21 U/L (12-78) (ALT/SGPT) Alkaline Phosphatase 56 U/L (45-117) Total Protein 6.2 GM/DL (6.4-8.2) Albumin 2.8 GM/DL (3.4-5.0) Test 04/13/16 04/13/16 04/14/16 20:02 20:26 06:09 Blood Gas Puncture Site RT RADIAL Blood Gas Patient Temperature 98.6 Blood Gas HCO3 18 mmol/L (22-26) Blood Gas Base Excess -6.1 mmol/L (-2-2) Blood Gas Oxygen Saturation 94 % (90-100) Arterial Blood pH 7.38 (7.380-7.420) Arterial Blood Partial 31 mmHg (38-42) Pressure CO2 Arterial Blood Partial 84 mmHg Pressure O2 (61-120) Arterial Blood Oxygen Content 14.8 Vol % (12.0-20.0) Arterial Blood 0.9 % (0-4) Carboxyhemoglobin Arterial Blood Methemoglobin 0.7 % (0-2) Blood Gas Hemoglobin 11.1 G/DL (12.0-16.0) Oxygen Delivery Device NASAL CANNULA Blood Gas Liter Flow 4 L/M Vancomycin Level Trough 19.1 MCG/ML (5.0-10.0) Sodium Level 150 MEQ/L (136-145) Potassium Level 3.7 MEQ/L (3.5-5.1) Chloride Level 118 MEQ/L (98-107) Carbon Dioxide Level 19.2 MEQ/L (21.0-32.0) Anion Gap 13 MEQ/L (5-15) Blood Urea Nitrogen 31 MG/DL (7-18) Creatinine 1.40 MG/DL (0.60-1.30) Estimat Glomerular Filtration 58 ML/MIN (>89) Rate Random Glucose 140 MG/DL (74-106) Calcium Level 8.4 MG/DL (8.5-10.1) (Haleigh Ames) Result Diagram: 04/13/16 0535 04/14/16 0609 Microbiology Microbiology Date/Time Procedure Status Source Growth 04/13/16 05:55 Aerobic Blood Culture - Preliminary Resulted Blood Peripheral NO GROWTH IN 1 DAY 04/13/16 05:55 Anaerobic Blood Culture - Preliminary Resulted Blood Peripheral NO GROWTH IN 1 DAY 04/13/16 06:00 Aerobic Blood Culture - Preliminary Resulted Blood Peripheral NO GROWTH IN 1 DAY 04/13/16 06:00 Anaerobic Blood Culture - Preliminary Resulted Blood Peripheral NO GROWTH IN 1 DAY 04/13/16 06:00 Aerobic Blood Culture Received Blood Peripheral Pending 04/13/16 06:00 Anaerobic Blood Culture Received Blood Peripheral Pending Imaging Last Impressions Chest X-Ray 04/13/16 0000 Signed Impressions: Service Date/Time: Wednesday, April 13, 2016 19:52 - CONCLUSION: Increased density at the left base silhouetting portions of the left hemidiaphragm consistent with some degree of atelectasis or consolidation in this region. Jorge Desai MD Procedures * Extubation 04/11/16 * Intubation 04/09/16 . (Haleigh Ames) Patient/Family Conference Present at Family Conference: Daughter Kimi and granddaughter Jennifer. Family Conference Time (mins): 46 Family Conference Location: Bedside, Consult Room Issues Discussed: * Palliative care role, purpose, approach * Additional medical, psychosocial, and spiritual history * Patients general health, functional status, and cognitive changes in the months leading up to the current hospitalization * Family's understanding of the current medical problems * Family's understanding of prognosis * Patients goals of care as best understood from advance directives and/or conversations and/or values * Current medical treatment options and benefits/burdens of those options, to include CPR, intubation and mechanical ventilation given patient's progressive illness. * Likely scenarios comparing ongoing aggressive care with a transition to comfort measures only * Questions answered to the best of my ability * Palliative care contact information provided * Hospice philosophy and services . (Haleigh Ames) Assessment and Plan Disease Oriented Problem List: (1) Acute hypoxemic respiratory failure (2) COPD exacerbation (3) Renal insufficiency (4) Sepsis Symptom Scale: (1) Shortness of breath 0-10 Scale: Unable to quantify Comment: Secondary to COPD exacerbation, sepsis. Intubated on 04/09/16 extubated on 04/11/16. Recent hospitalization secondary to COPD exacerbation. (2) Debility Comment: Progressive secondary to burden of disease. Requires moderate assistance with all ADLs. Limited ambulation. Pertinent Non-Medical Issues Psychosocial: . Has 3 children. Residing with family members prior to these hospitalization. Spiritual: No spiritual affiliation. Legal: Living will has been completed. Pending documents from family. Ethical issues impacting care: No ethical issues have been identified. . Important Contacts Granddaleah Campbell [phone] . Prognosis Mr. Campbell is an 89-year-old male with a medical history of COPD, dementia, and recent hospitalizations who presented to the ED via EMS on 04/09/16 secondary to respiratory distress. As per family, patient was recently discharged from a hospitalization secondary to COPD exacerbation. Family reports progressive cognitive and functional decline, worsen within the last 3 months. Patient's overall prognosis is poor for an improved quality of life or long-term survival secondary to age, recent hospitalizations, acute events requiring intubation and mechanical ventilation, multiple comorbidities. Patient is at high risk for further decline, complications and . Family electing to transition patient to comfort directed care with hospice given his poor prognosis. Life expectancy of weeks to months if illness runs its natural course. Patient appears hospice appropriate for COPD as evidenced by to acute care admissions within the last 2 months, progressive pulmonary disease, dyspnea at rest, O2 dependent and profound physical deconditioning. . Code Status: No Code Plan * CODE STATUS: No code. DNR/DNI. * Healthcare decision-making capacity: Patient Max capacity secondary to clinical condition, dementia -confusion. As per family, living well and healthcare surrogate completed. Granddaleah Campbell listed as healthcare surrogate decision maker. * GOALS OF CARE: No code. DNR/DNI. Family electing comfort directed care with hospice given his poor overall prognosis for an improved quality of life or long -term survival. Goal to discharge home with hospice services. Life expectancy of weeks to months if illness runs its natural course. Patient appears hospice appropriate under Medicare guidelines for COPD as evidenced by 2 acute care admissions within the last 2 months, progressive pulmonary disease, dyspnea at rest, O2 dependent and profound physical deconditioning. Family verbalized not wishing for patient to in the hospital. * Family electing [facility]. Consult has been called. * SYMPTOMS: == Dyspnea: Secondary to COPD, sepsis. Patient on O2 via nasal cannula. Currently on Decadron every 6 hours. Morphine as needed.== Debility, progressive and multifactorial. Worsened in the last 3 months. Patient requiring increasing assistance with all ADLs. Family wishing to discharge home. * Case discussed with Dr. Rizvi and bedside RN. Call placed to Dr. Ludwig. * Palliative care contact information has been provided to family. * Ongoing active listening and emotional support provided to family. * Palliative care to continue to follow-up with this patient/family for further clarifications of goals of care and emotional support. . (Haleigh Ames) Time Spent Total Floor Time (mins): 92 (review and summarization of available medical records including prior hospitalizations, physical exam, goals of care discussion With patient and family, and case discussion with bedside RN.) >50% Counseling/Coord of Care: Yes (Haleigh Ames) Thank you for the opportunity to participate in the care of Mr. Campbell. (Haleigh Ames) Attestation To help prompt me to consider important information that might be impacting today's encounter and assessment, information from prior notes written by myself or my colleagues may have been "brought forward" into today's note. My signature on this note, however, is an attestation that I personally performed the exam, history, and/or decision-making noted today, and, unless otherwise indicated, the interactions with patient, family, and staff as well as the review of records all occurred today. I also attest that the listed assessment and stated plan reflect my best clinical judgment today based on the combination of historical information, prior notes, and today's exam/ interactions. When time spent is documented, it refers only to time spent today by the signer, or if indicated, combined time spent today by collaborating physician/nurse practitioner. (Haleigh Ames) Collaborating MD Comments Chart reviewed. Case discussed with palliative care MCAT TUTOR. Above MCAT TUTOR note reviewed and I concur. . (Santosh Moore MD) Haleigh Ames Apr 14, 2016 13:08 Santosh Moore MD Apr 18, 2016 12:20
--- NOTE | 2016-04-14 14:40 | HHI.PR ---
Subjective Remarks Patient 4*end, had an episode of shortness of breath and tachypnea yesterday, chest x-ray seems to be worsening. Afebrile. Objective Vitals Vital Signs Date Time Temp Pulse Resp B/P Pulse Ox O2 Delivery O2 Flow Rate FiO2 04/14/16 12:00 75 04/14/16 12:00 98.0 77 18 155/65 97 04/14/16 10:06 95 Nasal Cannula 2.00 04/14/16 10:00 90 04/14/16 10:00 98.0 78 15 184/83 95 04/14/16 08:00 98.0 78 15 184/83 95 04/14/16 08:00 90 04/14/16 07:15 Nasal Cannula 4.00 04/14/16 06:00 78 04/14/16 04:00 98.0 78 15 133/68 95 04/14/16 04:00 113 04/14/16 02:00 83 04/14/16 01:23 96 Nasal Cannula 4.00 04/14/16 00:00 Nasal Cannula 4.00 04/14/16 00:00 97.6 90 20 121/61 95 04/14/16 00:00 90 04/13/16 20:04 98 Nasal Cannula 4.00 04/13/16 19:22 98.6 108 20 181/95 91 04/13/16 16:00 98.8 75 20 164/73 94 I/O 04/13/16 04/13/16 04/13/16 04/14/16 04/14/16 04/14/16 07:00 15:00 23:00 07:00 15:00 23:00 Intake Total 663 ml 990 ml 329 ml Output Total 500 ml 600 ml 1850 ml Balance 163 ml 390 ml -1521 ml Intake Oral 480 ml IV Total 663 ml 510 ml 329 ml Output Urine Total 500 ml 600 ml 1850 ml # Bowel Movements 1 Result Diagram: 04/13/16 0535 04/14/16 0609 Objective Remarks GENERAL: Well-nourished, well-developed patient. Restart them. EYES: No scleral icterus. NECK: Supple, trachea midline. CARDIOVASCULAR: Regular rate and rhythm without murmurs, gallops, or rubs. RESPIRATORY: No wheezing, decreased breath sounds, tachypneic. GASTROINTESTINAL: Abdomen soft, non-tender, nondistended. MUSCULOSKELETAL: No cyanosis, or edema. BACK: Nontender without obvious deformity. No CVA tenderness. Alert, awake, not oriented, moves extremities. A/P Assessment and Plan Acute on chronic respiratory failure secondary to COPD exacerbation- Extubated 04/11/16. Chest x-ray unremarkable. Worsening respiratory status, repeat chest x-ray possible increasing density in the left base, continue Zosyn, vancomycin and azithromycin, start incentive spirometry. DuoNeb's around-the- clock, increase steroids. Repeat sputum culture. UTI with MRSA, also with bacteremia-sensitive to vancomycin, continue vancomycin for now, stop linezolid, infectious disease consulted, follow-up echocardiogram and repeat blood culture. Blood culture also growing gram- positive cocci, echocardiogram showed an ejection fraction of 65-70%, no obvious vegetation. Acute kidney injury-resolved. Continue IVF. Lactic acidosis-resolved Hypertension-normotensive, hold home meds. Hypernatremia- continue D5W, recheck tomorrow. DVT GI prophylaxis - Lovenox and Pepcid Johnathan Ludwig MD Apr 14, 2016 14:40
--- NOTE | 2016-04-14 14:47 | HHI.DS ---
Discharge Summary Admission Date Apr 09, 2016 at 17:27 Discharge Date: Apr 14, 2016 Admitting Diagnosis VDRF, SEPSIS (1) COPD exacerbation ICD Code: J44.1 Diagnosis: Principal (2) Acute hypoxemic respiratory failure ICD Code: J96.01 Diagnosis: Principal Procedures intubation Brief History - From Admission 89-year-old male with history of COPD, presents to emergency room with respiratory failure. As per documentation, EMS were called to patient's home as patient was having increased agonal breathing. As per EMS, patient's home health nurse went to evaluate patient and patient was short of breath and wheezing. Patient was given an albuterol treatment with minimal relief of symptoms. When EMS arrived on scene, patient was unresponsive in respiratory distress. Patient was intubated for protection of airway. CBC/BMP: 04/13/16 0535 04/14/16 0609 Significant Findings Laboratory Tests Test 04/12/16 04/13/16 04/13/16 04/13/16 03:58 05:35 05:55 20:02 White Blood Count 16.4 TH/MM3 12.1 TH/MM3 (4.0-11.0) (4.0-11.0) Red Blood Count 3.79 MIL/MM3 3.71 MIL/MM3 (4.50-5.90) (4.50-5.90) Hemoglobin 10.9 GM/DL 10.5 GM/DL (13.0-17.0) (13.0-17.0) Hematocrit 33.2 % 32.8 % (39.0-51.0) (39.0-51.0) Neutrophils (%) (Auto) 88.6 % 86.3 % (16.0-70.0) (16.0-70.0) Lymphocytes (%) (Auto) 8.2 % (9.0-44.0) Neutrophils # (Auto) 14.5 TH/MM3 10.4 TH/MM3 (1.8-7.7) (1.8-7.7) Sodium Level 149 MEQ/L 153 MEQ/L (136-145) (136-145) Chloride Level 118 MEQ/L 122 MEQ/L (98-107) (98-107) Blood Urea Nitrogen 28 MG/DL (7-18) 27 MG/DL (7-18) Estimat Glomerular Filtration 68 ML/MIN (>89) 65 ML/MIN (>89) Rate Random Glucose 130 MG/DL 148 MG/DL (74-106) (74-106) Phosphorus Level 2.0 MG/DL (2.5-4.9) Magnesium Level 2.8 MG/DL (1.5-2.5) Total Protein 6.2 GM/DL (6.4-8.2) Albumin 2.8 GM/DL (3.4-5.0) Mean Corpuscular Hemoglobin 31.9 % Concent (32.0-36.0) Red Cell Distribution Width 17.3 % (11.6-17.2) Carbon Dioxide Level 20.1 MEQ/L (21.0-32.0) Calcium Level 8.1 MG/DL (8.5-10.1) Blood Gas HCO3 18 mmol/L (22-26) Blood Gas Base Excess -6.1 mmol/L (-2-2) Arterial Blood Partial 31 mmHg (38-42) Pressure CO2 Blood Gas Hemoglobin 11.1 G/DL (12.0-16.0) Test 04/13/16 04/14/16 20:26 06:09 Vancomycin Level Trough 19.1 MCG/ML (5.0-10.0) Sodium Level 150 MEQ/L (136-145) Chloride Level 118 MEQ/L (98-107) Carbon Dioxide Level 19.2 MEQ/L (21.0-32.0) Blood Urea Nitrogen 31 MG/DL (7-18) Creatinine 1.40 MG/DL (0.60-1.30) Estimat Glomerular Filtration 58 ML/MIN (>89) Rate Random Glucose 140 MG/DL (74-106) Calcium Level 8.4 MG/DL (8.5-10.1) Imaging Last Impressions Chest X-Ray 04/13/16 0000 Signed Impressions: Service Date/Time: Wednesday, April 13, 2016 19:52 - CONCLUSION: Increased density at the left base silhouetting portions of the left hemidiaphragm consistent with some degree of atelectasis or consolidation in this region. Jorge Desai MD PE at Discharge GENERAL: Well-nourished, well-developed patient. Restart them. EYES: No scleral icterus. NECK: Supple, trachea midline. CARDIOVASCULAR: Regular rate and rhythm without murmurs, gallops, or rubs. RESPIRATORY: No wheezing, decreased breath sounds, tachypneic. GASTROINTESTINAL: Abdomen soft, non-tender, nondistended. MUSCULOSKELETAL: No cyanosis, or edema. BACK: Nontender without obvious deformity. No CVA tenderness. Alert, awake, not oriented, moves extremities. Hospital Course 89 year-old male who came in with shortness of breath, follow-up of COPD exacerbation. Patient was initially admitted to ICU and intubated. Please refer to the notes from the carcass washer regarding patient's stay. Patient was eventually extubated 04/11/16. Chest x-ray unremarkable. However patient continued to have Worsening respiratory status, repeat chest x-ray possible increasing density in the left base, patient was on Zosyn, vancomycin and azithromycin. She also had UTI with MRSA. Infectious disease was consulted, recommendation is possible hospice. Palliative care consult was done, patient agreed to transitioning patient to hospice. Patient was then discharged on hospice. Pt Condition on Discharge: Deteriorating Discharge Disposition: Hospice/ Home Discharge Time: > 30 minutes Johnathan Ludwig MD Apr 14, 2016 14:47
--- NOTE | 2016-04-14 14:49 | HHI.PR ---
Addendum to Inpatient Note Addendum Reason: Additional Documentation Additional Information Patients family has chosen to take pt home with hospice. Hospice consult placed. d/w Will sign off please call back if any change in condition or plans. Juana Rizvi MD Apr 14, 2016 14:48
[2016-04-14] MEDS ORDERED: FUROSEMIDE 20 MG/2 ML VIAL IV PUSH ONE (16:00)
--- NOTE | 2016-04-14 17:12 | HHI.DS ---
Discharge Summary Admission Date Apr 09, 2016 at 17:27 Discharge Date: Apr 14, 2016 Admitting Diagnosis VDRF, SEPSIS (1) Acute hypoxemic respiratory failure Diagnosis: Secondary (2) COPD exacerbation Diagnosis: Principal (3) Renal insufficiency Diagnosis: Secondary (4) Sepsis Diagnosis: Secondary Procedures * Extubation 04/11/16 * Intubation 04/09/16 . Brief History Mr. Campbell is an 89-year-old male with a medical history of COPD, dementia, and recent hospitalizations who presented to the ED via EMS on 04/09/16 secondary to respiratory distress. As per family, patient was recently discharged from a hospitalization secondary to COPD exacerbation. He was discharged home with home health but only received 3-4 services as per family. Granddaughter Jennifer, who is a nurse, found patient short of breath and wheezing. Albuterol was given with minimal relief, EMS was called and patient was intubated in the field for airway protection. Upon ED arrival, chest x-ray revealed no acute cardiopulmonary disease. ED labs include WBC 19.8, Hgb 11.9, platelet count 254. Lactic acid 4.5. Sodium 140, potassium 4.7, BUN/creatinine 20/1.25. MRSA PCR nares positive. Blood cultures to 04/09/16 positive for gram positive cocci. Patient was admitted secondary to acute on chronic respiratory failure, acute kidney injury, lactic acidosis and hypertension. Urine culture 04/10/16 with S. Aureus MRSA. Urine Legionella antigen negative. Echocardiogram 04/10/16 revealing EF of 65-70%, mild mitral and tricuspid regurgitation. Infectious disease -Dr. Montero consulted secondary to sepsis. Patient has been placed on antibiotics. Repeat blood culture 04/13/16 no growth in one day thus far. Repeat chest x-ray showing increased density at the left base consistent with some degree of atelectasis or consolidation. Patient extubated on 04/11/16. Latest laboratory results 04/13/16 WBC 12.1, Hgb 10.5, platelet count 213. NA 150, K 3.7, BUN/creatinine 31/1.40. Albumin 2.8. On 04/13/16, while on the medical floor patient developed stridor and respiratory distress. He was subsequently transferred to ICU for close monitoring and management. Pending ENT consult for evaluation of possible structural abnormalities. Palliative care has been consulted for further clarifications of goals of care in the setting of patient's progressive COPD with exacerbations, recent hospitalization , progressive functional and cognitive decline and multiple comorbidities. Patient seen in ICU. He was laying in bed in no acute distress. Alert to self , unable to tell me his name but unable to take me location or time. Confused. Denies shortness of breath, nausea/vomiting or discomfort. Patient tells me that he has 3 or 4 children, unable to provide remains. Telephone call to patient's granddaughter Jennifer Campbell. Agreed to meet with palliative care. Met with Jennifer patient's daughter Kimi. Medical update provided. Review progression of his illness, COPD exacerbations requiring hospitalizations, and recent cognitive and functional decline. Discussed prior hospitalization back in January secondary to COPD exacerbation and acute hypoxemic respiratory failure. Granddaughter Jennifer reports that she moved to patient's house in December 2015 secondary to his decline in health. Patient independent with minimal assistance prior to these. Since December 2015, patient requiring moderate assistance with ADLs. Progressive cognitive and functional decline. Worsen after hospitalization in January. Patient return home with home health but only received 3 or 4 visits. Review likely trajectory of progressive decline an acute complication secondary to COPD. Discuss CPR/intubation and mechanical ventilation in the setting of patient's current clinical condition. Family electing DNR/DNI. Family verbalized wishing for patient to return home and to avoid further hospitalizations. Hospice philosophy and services discussed, family aware of hospice as patient's under their services back in 2000. Family wishing to meet with hospice for further information, considering discharge with hospice at this point. Ongoing emotional support and active listening provided. . CBC/BMP: 04/13/16 0535 04/14/16 0609 Significant Findings Laboratory Tests Test 04/12/16 04/13/16 04/13/16 04/13/16 03:58 05:35 05:55 20:02 White Blood Count 16.4 TH/MM3 12.1 TH/MM3 (4.0-11.0) (4.0-11.0) Red Blood Count 3.79 MIL/MM3 3.71 MIL/MM3 (4.50-5.90) (4.50-5.90) Hemoglobin 10.9 GM/DL 10.5 GM/DL (13.0-17.0) (13.0-17.0) Hematocrit 33.2 % 32.8 % (39.0-51.0) (39.0-51.0) Neutrophils (%) (Auto) 88.6 % 86.3 % (16.0-70.0) (16.0-70.0) Lymphocytes (%) (Auto) 8.2 % (9.0-44.0) Neutrophils # (Auto) 14.5 TH/MM3 10.4 TH/MM3 (1.8-7.7) (1.8-7.7) Sodium Level 149 MEQ/L 153 MEQ/L (136-145) (136-145) Chloride Level 118 MEQ/L 122 MEQ/L (98-107) (98-107) Blood Urea Nitrogen 28 MG/DL (7-18) 27 MG/DL (7-18) Estimat Glomerular Filtration 68 ML/MIN (>89) 65 ML/MIN (>89) Rate Random Glucose 130 MG/DL 148 MG/DL (74-106) (74-106) Phosphorus Level 2.0 MG/DL (2.5-4.9) Magnesium Level 2.8 MG/DL (1.5-2.5) Total Protein 6.2 GM/DL (6.4-8.2) Albumin 2.8 GM/DL (3.4-5.0) Mean Corpuscular Hemoglobin 31.9 % Concent (32.0-36.0) Red Cell Distribution Width 17.3 % (11.6-17.2) Carbon Dioxide Level 20.1 MEQ/L (21.0-32.0) Calcium Level 8.1 MG/DL (8.5-10.1) Blood Gas HCO3 18 mmol/L (22-26) Blood Gas Base Excess -6.1 mmol/L (-2-2) Arterial Blood Partial 31 mmHg (38-42) Pressure CO2 Blood Gas Hemoglobin 11.1 G/DL (12.0-16.0) Test 04/13/16 04/14/16 20:26 06:09 Vancomycin Level Trough 19.1 MCG/ML (5.0-10.0) Sodium Level 150 MEQ/L (136-145) Chloride Level 118 MEQ/L (98-107) Carbon Dioxide Level 19.2 MEQ/L (21.0-32.0) Blood Urea Nitrogen 31 MG/DL (7-18) Creatinine 1.40 MG/DL (0.60-1.30) Estimat Glomerular Filtration 58 ML/MIN (>89) Rate Random Glucose 140 MG/DL (74-106) Calcium Level 8.4 MG/DL (8.5-10.1) Imaging Last Impressions Chest X-Ray 04/13/16 0000 Signed Impressions: Service Date/Time: Wednesday, April 13, 2016 19:52 - CONCLUSION: Increased density at the left base silhouetting portions of the left hemidiaphragm consistent with some degree of atelectasis or consolidation in this region. Jorge Desai MD PE at Discharge CONSTITUTIONAL/GENERAL: This is an elderly patient in no apparent distress. Appears his stated age. TUBES/LINES/DRAINS: PIV's, SCDs, Cabrera catheter. Bilateral soft wrist restraints. SKIN: Very dry skin.. Scatter ecchymoses on upper extremities. No wounds seen anteriorly. Skin temperature appropriate. Not diaphoretic. HEAD: Atraumatic. Normocephalic. EYES: Pupils equal and round and reactive. Extraocular motions intact. No scleral icterus. No injection or drainage. Bilateral arcus senilis. ENT: Hard of hearing, hearing aid on left ear. Nose without bleeding or purulent drainage. Throat without visible erythema, exudates, masses, or lesions. Dry lips. NECK: Trachea midline. Supple, nontender. CARDIOVASCULAR: Regular rate and rhythm. Peripheral pulses symmetric. RESPIRATORY/CHEST: Symmetric. Expiratory wheezes bilateral. Abdominal breathing. GASTROINTESTINAL: Abdomen soft, non-tender, nondistended. No guarding. Bowel sounds present. GENITOURINARY: Without palpable bladder distension. Cabrera catheter in place. MUSCULOSKELETAL: Extremities without clubbing, cyanosis, or edema. No mottling or clubbing NEUROLOGICAL: Awake, alert to self. Confused. Follows some commands. Moves all extremities. PSYCHIATRIC: No obvious anxiety/depression. Calm. . Pt Condition on Discharge: Deteriorating Discharge Disposition: Hospice/Med Facility Discharge Instructions DIET: Follow Instructions for: As Tolerated, No Restrictions Activities you can perform: Continue Bedrest Additional Information Family elects No code/ DNR/DNI. Family electing comfort directed care with hospice given his poor overall prognosis for an improved quality of life or long -term survival. Goal to discharge home with hospice services. Life expectancy of weeks to months if illness runs its natural course. Patient appears hospice appropriate under Medicare guidelines for COPD as evidenced by 2 acute care admissions within the last 2 months, progressive pulmonary disease, dyspnea at rest, O2 dependent and profound physical deconditioning. Family verbalized not wishing for patient to in the hospital. Plan for transfer to OB with [facility] 04/14/16 5:45pm. . RAFAELA THORPE Apr 14, 2016 17:12
[2016-04-14] MEDS ORDERED: methylPREDNISolone SOD SUCC 40 MG/1 ML VIAL IV PUSH SCH (18:00)
[2016-04-14] MEDS ORDERED: RESP: ALBUTEROL 2.5 MG/IPRATROPIUM 0.5 MG NEB (SCH) NEB (20:00)
[2016-04-14] MEDS ORDERED: PANTOPRAZOLE SOD 40 MG DELAYED RELEASE TAB PO SCH (21:00)
--- NOTE | 2016-04-15 18:40 | PQ ---
Physician Query Response Document PATIENT: CASTRO METZ : 1925 ADMIT DATE: 04/09/2016 5:27 PM DISCH DATE: 04/14/2016 6:15 PM RESPONDING PROVIDER #: josé miguel QUERY TEXT: Sepsis Query A single mention of SEPSIS - is reflected in ED documentation but not mentioned elsewhere in the [facility] record.. Please clarify the diagnosis/diagnoses of - SEPSIS Based on your medical judgement, clinical/ diagnostic findings represent: 1. Sepsis (SIRS due to an infection) 2. Sepsis with Organ Dysfunction 3. A localized Infection only 4. Another condition - please specify 5. Unable to determine - please explain. Depending on your selection above, please indicate one of the below if applicable: - Sepsis was present on Admission - Sepsis developed after admission The patient's Clinical Indicators include: 04/09/16 Admission Diagnosis VDRF, SEPSIS PER ED NARRATIVE COURSE - Patient septic, 30 cc/kg IV fluids ordered for patient, patient has been pa ncultured, IV Zosyn and azithromycin was ordered for patient. Primary Impression: Acute hypoxemic respiratory failure Additional Impressions: COPD exacerbation Sepsis Renal insufficiency CLINICAL INDICATORS: 04/09/16 WBC - 19.8 H LACTIC ACID - 4.5 (CRITICAL H) TACHYCARDIA - 120, 103, 105, 108 Query created by: Alexandra Purcell on 04/13/2016 11:18 AM RESPONSE TEXT: Sepsis present on admission and continued to be relevant throughout his stay Electronically signed by: Johnathan Ludwig MD 04/15/2016 6:37 PM
[2016-04-16] MEDS ORDERED: PHARMACY ORDERED LAB XX ONE (20:45)
== END 2016-04-14 18:15 | disposition hospice, inpatient (51) | DRG 871 ==
LOC: NEPC 16:00 → NEDA 17:27 → HIMN 21:00 → N04A 04-13 15:50 → HIME 04-13 22:40
PROVIDERS: ADMIT Family Medicine; ATTEND Family Medicine
PROC: 5A1945Z Respiratory Ventilation, 24-96 Consecutive Hours (ICD-10-PCS; principal; 2016-04-09)
PROC: 0BH17EZ Insertion of Endotracheal Airway into Trachea, Via Natural or Artificial Opening (ICD-10-PCS; 2016-04-09)
PROC: 0T9B70Z Drainage of Bladder with Drainage Device, Via Natural or Artificial Opening (ICD-10-PCS; 2016-04-09)
DX: A41.9 Sepsis, unspecified organism (principal); J96.21 Acute and chronic respiratory failure with hypoxia; G93.40 Encephalopathy, unspecified; N17.9 Acute kidney failure, unspecified; J44.1 Chronic obstructive pulmonary disease with (acute) exacerbation; E87.2 Acidosis; E87.0 Hyperosmolality and hypernatremia; N39.0 Urinary tract infection, site not specified; F03.90 Unspecified dementia, unspecified severity, without behavioral disturbance, psychotic disturbance, mood disturbance, and anxiety; J45.909 Unspecified asthma, uncomplicated; E78.00 Pure hypercholesterolemia, unspecified; H91.90 Unspecified hearing loss, unspecified ear; I10 Essential (primary) hypertension; Z85.46 Personal history of malignant neoplasm of prostate; Z79.82 Long term (current) use of aspirin; E78.5 Hyperlipidemia, unspecified; Z87.891 Personal history of nicotine dependence; E86.0 Dehydration; Z80.42 Family history of malignant neoplasm of prostate; Z82.49 Family history of ischemic heart disease and other diseases of the circulatory system; Z66 Do not resuscitate; Z51.5 Encounter for palliative care; I08.1 Rheumatic disorders of both mitral and tricuspid valves; Z99.81 Dependence on supplemental oxygen; B95.62 Methicillin resistant Staphylococcus aureus infection as the cause of diseases classified elsewhere; R91.8 Other nonspecific abnormal finding of lung field; Z23 Encounter for immunization
CPT/HCPCS: 36600; 71010; 76937; 80048; 80053; 80202; 81001; 82550; 82805; 83605; 83735; 83880; 84100; 84484; 85007; 85025; 85027; 85610; 85730; 86403; 87040; 87077; 87086; 87147; 87186; 87205; 87449; 87641; 87804; 90732; 93005; 93306; 94002; 94003; 94640; 94664; 96365; 96375; C9113; J0456; J1100; J1644; J1940; J2060; J2250; J2543; J2920; J2930; J3370; J7030; J7040; J7050; J7070